=== PATIENT | male | born 1965 | race African-American/Black ===

== ENCOUNTER 2023-02-28 10:51 | Emergency (ER) | payer OTHER, SELFPAY ==
--- NOTE | ~2023-02-28 | XR_ITS ---
EXAMINATION: XR ribs LT 2V w CXR 2V DATE: 02/28/2023 12:06 INDICATION: Cough. Left rib fracture. TECHNIQUE: Frontal and lateral views of the chest and 2 views on 3 radiographs of the left ribs were obtained. COMPARISON: None. FINDINGS: CHEST TWO VIEWS: There is no pneumonia or pneumothorax. There is a small left pleural effusion. The h eart size is normal. There are surgical clips in the abdomen. There are suture anchors in left scapul a. LEFT RIBS: There is a healing comminuted fracture of left clavicle with callus formation. There are f ractures of left third through eighth ribs. Some of the fractures demonstrate early callus formation. IMPRESSION: 1. Fractures of left third-eighth ribs, at least some of which have evidence of healing. 2. Healing fracture of left clavicle. 3. Small left pleural effusion. Reviewed, dictated and finalized at location A.
--- NOTE | ~2023-02-28 | CT_ITS ---
EXAMINATION:CT diagnostic chest wo con DATE: 02/28/2023 12:49 INDICATION: Left anterior rib pain. TECHNIQUE: Computed tomography (CT) of the chest was performed without intravenous contrast. Automate d exposure control and iterative reconstruction technique were employed. The dose-length product (DLP ) was 212.63 mGy-cm. COMPARISON: Chest and left rib radiographs 02/28/2023 FINDINGS: There is mild emphysema. There is mild atelectasis bilaterally. There is a trace left pleur al effusion. The heart size is normal. No pericardial effusion. There are coronary artery calcificati ons. Right-sided gynecomastia is noted. 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 There is a healing fracture of left clavicle. There is a healing fracture of left scapula. There are suture anchors in l eft scapula. There are healing fractures of left second-eighth ribs. Many of the ribs are fractured i n more than one place. IMPRESSION: 1. Healing fractures of left clavicle, left scapula, and multiple left ribs. No acute fracture. 2. Mild emphysema. Reviewed, dictated and finalized at location A.
[2023-02-28 11:09] VITALS: BP 120/69; PULSE 80; RESP 16; TEMP 37; O2SAT 98
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
--- NOTE | 2023-02-28 13:21 | ECG_ITS ---
Measurements Intervals [place] Rate: 68 P: 49 OR: 170 QRS: 29 QRSD: 80 T: 29 QT: 380 QTc: 406 Interpretive Statements SINUS RHYTHM INCOMPLETE RIGHT BUNDLE BRANCH BLOCK NO PREVIOUS ECG AVAILABLE FOR COMPARISON Electronically Signed On 02-28-2023 14:00:46 CDT by Arianne Gay M.D.
[2023-02-28] MEDS: KETOROLAC (*BKC) 60 MG/2 ML VIAL IM (14:08)
== END 2023-02-28 14:22 | disposition home or self-care (01) ==
PROVIDERS: Emergency Provider Physician Assistant; PCP Internal Medicine
DX: R07.81 Pleurodynia (principal); S22.42XD Multiple fractures of ribs, left side, subsequent encounter for fracture with routine healing; S42.002D Fracture of unspecified part of left clavicle, subsequent encounter for fracture with routine healing; S42.102D Fracture of unspecified part of scapula, left shoulder, subsequent encounter for fracture with routine healing; J43.9 Emphysema, unspecified; V29.99XD Rider (driver) (passenger) of other motorcycle injured in unspecified traffic accident, subsequent encounter
CPT/HCPCS: 71046; 71100; 71250; 93005; 96372; 99284; J1885

== ENCOUNTER 2024-01-16 08:47 | Emergency (ER) | payer OTHER, SELFPAY ==
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
[2024-01-16 08:55] VITALS: BP 129/91; PULSE 64; RESP 18; TEMP 36.8; O2SAT 99
--- NOTE | 2024-01-16 09:52 | ED.GENADULT ---
HPI - General Adult General Chief complaint: Headache Stated complaint: headache Time Seen by Provider: 01/16/24 08:56 History of Present Illness HPI narrative: 58-year-old male present to the emergency department for evaluation of recurrent headache. Patient states he has had headache for the last few weeks. Patient initially thought it was due to an ear infection on the right. Patient does have a bleed to the ER but that is almost constantly in the right ear. Patient states he was treated for an ear infection and began to have improvement but symptoms worsened again yesterday after being upset Related Data Allergies Allergy/AdvReac Type Severity Reaction Status Date / Time egg Allergy Unknown Verified 01/16/24 09:01 Review of Systems Review of Systems: All systems reviewed & are unremarkable except as noted in HPI and below Exam Narrative: APPEARANCE: Well appearing, no pain, no distress, well-nourished. HEAD: normocephalic, atraumatic. EYES: PERRLA/EOMI, conjunctivae clear. NOSE: Normal no drainage EARS:TMS clear with good light reflex. THROAT: Pharynx clear, no exudate. NECK: Supple. No adenopathy, no masses. RESPIRATORY: Airway patent, respirations nonlabored. Clear to auscultation bilaterally, no rales, rhonchi, wheezing. CARDIOVASCULAR: Regular rate and rhythm without murmurs rubs or gallops. ABDOMINAL: Soft, nontender, nondistended, normal bowel sounds MUSCULOSKELETAL: Moves all extremities. Strength/ROM intact, No edema, No calf tenderness. NEURO: Alert. Cranial nerves II through XII intact. Good gait. Good coordination SKIN: Warm, dry. Normal Color Course Course Emergency Course: Patient does feel improved with treatment Vital Signs Vital signs: Vital Signs Temperature 98.2 F 01/16/24 08:55 Pulse Rate 64 01/16/24 08:55 Respiratory Rate 18 01/16/24 08:55 Blood Pressure 129/91 H 01/16/24 08:55 Pulse Oximetry 99 01/16/24 08:55 Oxygen Delivery Room Air 01/16/24 08:55 Temperature 98.2 F 01/16/24 08:55 Pulse Rate 69 01/16/24 12:01 Respiratory Rate 18 01/16/24 12:01 Blood Pressure 140/87 01/16/24 12:01 Pulse Oximetry 96 01/16/24 12:01 Oxygen Delivery Room Air 01/16/24 08:55 Medical Decision Making MDM Narrative Medical decision making narrative: 50-year-old male presents emergency department for evaluation of right-sided headache. Head CT was negative. No evidence of otitis externa or otitis media on right ear. Patient was treated with IV Toradol, IV Compazine IV Reglan IV fluids and patient states his headache is resolved. Patient was comfortable with plan for discharge and close follow-up. Differential Diagnosis Differential Diagnosis: Migraine, headache, intracranial abnormality, otitis media, otitis externa, mastoiditis Vital Signs Vital Signs: Vital Signs Temperature 98.2 F 01/16/24 08:55 Pulse Rate 64 01/16/24 08:55 Respiratory Rate 18 01/16/24 08:55 Blood Pressure 129/91 H 01/16/24 08:55 Pulse Oximetry 99 01/16/24 08:55 Oxygen Delivery Room Air 01/16/24 08:55 Temperature 98.2 F 01/16/24 08:55 Pulse Rate 69 01/16/24 12:01 Respiratory Rate 18 01/16/24 12:01 Blood Pressure 140/87 01/16/24 12:01 Pulse Oximetry 96 01/16/24 12:01 Oxygen Delivery Room Air 01/16/24 08:55 Imaging Data Radiologist's impression: Impressions Head CT 01/16/24 09:17 IMPRESSION: 1. Normal brain. Discharge Plan Discharge Clinical Impression: Headache Patient Disposition: Home, Self-Care Condition: Stable Instructions: Antibiotic Form, Acute Headache (ED) Additional Instructions: Tylenol and ibuprofen for headache. Have close follow-up with your primary care physician. If you have any worsening symptoms then please call or return to the emergency department. Prescriptions: No Action lidocaine 5 % adhesive patch,medicated 1 patch topical DAILY Qty: 15 0RF Rx Instructions:
[2024-01-16] MEDS: diphenhydrAMINE HCl INJ 50 MG/ML VIAL 25 MG IV PUSH (10:05)
[2024-01-16] MEDS: KETOROLAC 15 MG/ML VIAL (*BKC) IV PUSH (10:05)
[2024-01-16] MEDS: PROCHLORPERAZINE EDISYLATE 10 MG/2 ML VIAL IV PUSH (10:06)
[2024-01-16] MEDS: SODIUM CHLORIDE 0.9% IV 1,000 ML 999 ML IV CONT (10:06)
[2024-01-16 12:01] VITALS: BP 140/87; PULSE 69; RESP 18; O2SAT 96
== END 2024-01-16 12:04 | disposition home or self-care (01) ==
PROVIDERS: Emergency Provider Emergency Medicine; PCP Internal Medicine
DX: R51.9 Headache, unspecified (principal)
CPT/HCPCS: 70450; 96361; 96374; 96375; 99284; J0780; J1200; J1885; J7030

== ENCOUNTER 2024-11-02 19:40 | Emergency (ER) | payer OTHER, SELFPAY ==
--- NOTE | ~2024-11-02 | XR_ITS ---
XR chest 2V Ordering provider: Bouchra Mars History: 58 years Male with . SOB . Comparison: February 28, 2023 FINDINGS: MEDIASTINUM: The cardiac silhouette is not enlarged. LUNGS: No infiltrates, effusions or pneumothorax. OTHER: No free air under the diaphragm. Fracture of the left scapula is noted. Fracture of the left t hird, fourth, fifth and sixth ribs is noted. Degenerative changes of the spine. IMPRESSION: Multiple left rib fractures. Fracture of the left scapula. Otherwise, No acute cardiopulmonary pathology. Reviewed, dictated and finalized at location A.
--- NOTE | ~2024-11-02 | CT_ITS ---
Procedure: CT shoulder LT wo con Ordering provider: Eloy Knowles PA-C History: . follow up XR, L scapular fx . Comparison: None. Technique: Thin slice axial CT of the No IV contrast was given. Sagittal and coronal reformatted imag es were also obtained and reviewed. Radiation reduction technique utilized. The dose-length product w as 286.04 mGy-cm. Findings: BONES: Old healed fracture is seen in the left scapula. No definite acute scapular fracture is seen. Old healed fractures are seen in the left third, fourth, fifth and sixth ribs. Postoperative changes are also seen in the left scapula area. Old healed fracture of the left clavicle is also noted JOINT SPACES: Osteoarthritic changes of the glenohumeral joint. SOFT TISSUES: Normal IMPRESSION: No definite acute fracture. Old fracture in the left scapula. Old healed fracture of the left clavicle. Multiple healed old fractures in the left hemithorax ribs. Reviewed, dictated and finalized at location A.
--- NOTE | ~2024-11-02 | CT_ITS ---
CT diagnostic chest wo [facility] Ordering provider: Eloy Knowles PA-C History: 58 years Male with . fall, follow up chest xr . Comparison: None. Technique: CT chest without IV contrast. Radiation reduction technique utilized. The dose-length product was 446.64 mGy-cm. FINDINGS: VISUALIZED THORACIC INLET: Normal. MEDIASTINUM: Aorta/coronary arteries: Mild atheromatous disease. Heart/other: The heart is not enlarged. Lymph nodes: No mediastinal or hilar adenopathy. LUNGS: No pulmonary nodules or masses. No infiltrates or effusions. No pneumothorax. Dependent atelec tatic changes. VISUALIZED UPPER ABDOMEN: the visualized upper abdomen is normal. MUSCULOSKELETAL: Soft tissues: The superficial soft tissues are normal. Bones: Age appropriate degenerative changes of the spine. Multiple healed left upper thoracic fractur e ribs. Healed fracture in the left scapula. IMPRESSION: 1. No acute cardiopulmonary pathology. 2. Old fractures in the left hemithorax upper ribs. Old fracture of the left scapula. Reviewed, dictated and finalized at location A. IMPRESSION: 1. No acute cardiopulmonary pathology. 2. Old fractures in the left hemithorax upper ribs. Old fracture of the left s capula.
--- NOTE | ~2024-11-02 | XR_ITS ---
XR scapula LT Ordering provider: Bouchra Mars MD History: . pain, injury . Comparison: None. FINDINGS: BONES: Fracture of the left scapula is noted.. Fracture of the adjacent ribs is noted. Old healed fra cture of the left clavicle is possible. JOINT SPACES: The acromioclavicular joint is normal. The glenohumeral joint is normal. SOFT TISSUES: Normal. IMPRESSION: Fracture of the left scapula near to the glenoid cavity. CT is better for evaluation. Reviewed, dictated and finalized at location A. IMPRESSION: Fracture of the left scapula near to the glenoid cavity. CT is better for evalu ation.
--- OUTSIDE RECORDS SUMMARY | 2024-11-02 19:43 | XMS_ITS | Referral Summary ---
Author Organization [facility] Address [address] [place] [address] Care Team Providers Care Manager Ecommerce Name Role Phone Min Self MD Primary Care Provider [phone] Min Self MD Unavailable [phone] Chris Craft PT Unavailable Unavaila Tessie Carlson OIL SPECULATOR Unavailable Unavailab Galen Grady MD Unavailable Encounters Date Type Department Care Team Description 10/28/2024 Orders Only [facility] Primary Care at [address] [place] [phone] Min Self MD 10/22/2024 Telephone [facility] Radiology [address] [place] [address] Hyacinth Culver RN 10/20/2024 Telephone [facility] Primary Care at [address] [place] [phone] Min Self MD Medical Question/Miscellane ous 10/15/2024 6:33 AM CDT - 10/15/2024 11:59 PM CDT Hospital Encounter [facility] [address] [place] [id number] Alvaro Doty MD Left hip pain Discharge Disposition: Discharge to home or self care 10/13/2024 Orders Only [facility] Orthopaedic Surgery [address] [facility] ([place], [place] Advanced Medicine 6th [place] [address] [place] [address] Alvaro Doty MD 10/12/2024 Telephone [facility] Radiology, Interventional Radiology [address] [facility] [address] [place] [phone] Kamilla Guevara, RN Appointment 10/09/2024 Telephone [facility] Orthopaedic Surgery [facility] [facility] ([place] [place] 6th [place] [address] [place] [address] Alvaro Doty MD 10/09/2024 Telephone [facility] Radiology [address] [facility] [place] [address] yHacinth Culver RN 10/09/2024 8:15 AM CDT - 10/09/2024 11:59 PM CDT Hospital Encounter [facility] Rad[facility] [address] [place] [phone] Alvaro Doty MD Left hip pain Discharge Disposition: Discharge to home or self care 10/09/2024 8:40 AM CDT Office Visit [facility] Orthopaedic Surgery [address] [facility] ([place] [place] 6th [place] [address] [place] [address] Alvaro Doty MD Left hip pain (Primary Dx) 10/07/2024 Orders Only [facility] Orthopaedic Surgery [address] [facility] ([place] [place] [address]th [place] [address] [place] [address] Alvaro Doty MD Left hip pain (Primary Dx) 09/08/2024 7:47 AM STRAIGHTENING MACHINE FEEDER - 09/08/2024 11:59 PM STRAIGHTENING MACHINE FEEDER Hospital Encounter [facility] Orthopedics and Sports Medicine [address] [place] [address] [address] [place] [phone] Discharge Disposition: Discharge to home or self care 09/08/2024 2:00 PM STRAIGHTENING MACHINE FEEDER Office Visit [facility] Orthopedics and Sports Medicine [address] [place] [address] [address] [place] [phone] Alla Gomez PA Left hip pain (Primary Dx) 08/06/2024 Telephone [facility] Orthopedics and Sports Medicine [address] [facility] [address] [place] [address] Kevin Calvert MD from Last 3 Months Allergies Active Allergy Reactions Criticality Noted Date Comments Egg Nausea & Vomiting Low 01/07/2023 Medications methocarbamoL (ROBAXIN) 500 mg tablet Take 1 tablet (500 mg total) by mouth every 8 (eight) hours 60 tablet 3 Active Additional Information Patient not taking.Reported on 10/09/2024 aspirin 81 mg enteric coated tabletIndicati ons:Closed fracture of multiple ribs of left side with routine healing, subsequent encounter Take 1 tablet (81 mg total) by mouth daily Active albuterol 2.5 mg /3 mL (0.083 %) nebulizer solution Take 3 mL (2.5 mg total) by nebulization every 6 (six) hours as needed for wheezing 75 mL 1 3 Active bisacodyl EC (DULCOLAX EC) 5 mg EC tabletIndicati ons:constipati on Take 1 tablet (5 mg total) by mouth every other day 45 tablet 4 Active Additional Information Patient not taking.Reported on 09/08/2024 albuterol HFA (PROVENTIL HFA,VENTOLIN HFA,PROAIR HFA) 90 mcg/actuation inhaler Inhale 2 puffs every 4 (four) hours as needed for wheezing 2 each 1 4 Active rosuvastatin (CRESTOR) 40 mg tablet TAKE 1 TABLET BY MOUTH EVERY DAY 100 tablet 1 4 Active Additional Information Patient not taking.Reported on 10/09/2024 empagliflozin (Jardiance) 10 mg tablet Take 1 tablet (10 mg total) by mouth daily 90 tablet 3 4 Active metFORMIN XR (GLUCOPHAGE XR) 500 mg 24 hr tablet TAKE 3 TABLETS (1,500 MG TOTAL) BY MOUTH DAILY WITH BREAKFAST 270 tablet 1 5 Active meloxicam (MOBIC) 7.5 mg tablet Take 1 tablet (7.5 mg total) by mouth daily 5 Active Nurtec ODT tablet,disinte grating Take 1 tablet (75 mg total) by mouth every other day as needed (headache) 16 tablet 5 5 Active HYDROcodone-ac etaminophen (NORCO) 10-325 mg per tabletIndicati ons:Pain Take 1-2 tablets by mouth every 12 (twelve) hours as needed for pain 90 tablet 5 Active HYDROcodone-ac etaminophen (NORCO) 10-325 mg per tabletIndicati ons:Pain Take 1-2 tablets by mouth every 12 (twelve) hours as needed for pain 90 tablet 5 025 Discontin ued(Reord er) Active Problems Problem Noted Date Diagnosed Date Macrocytosis without anemia 06/19/2024 Overview (06/19/2024): B12, folate, tsh wnl 05/2024 Assessment & Plan (06/19/2024 8:13 AM STRAIGHTENING MACHINE FEEDER): B12, folate, TSH normal May 2024. History of stroke 02/17/2024 Assessment & Plan (05/27/2024 8:43 AM STRAIGHTENING MACHINE FEEDER): Prior left frontal lobe CVA. Repeat MRI. Assessment & Plan (02/17/2024 5:48 PM CDT): Will avoid Triptans with history of hypertension and previous stroke. Occipital headache 02/17/2024 Assessment & Plan (06/19/2024 8:14 AM STRAIGHTENING MACHINE FEEDER): Headaches well controlled with Nurtec ODT. Last required about a week ago. Recommended decreasing tobacco, alcohol, caffeine. Complete MRI as directed by Neurology and follow up with them for further management. Assessment & Plan (05/27/2024 8:45 AM STRAIGHTENING MACHINE FEEDER): Patient presents today for evaluation of occipital headaches that radiate to his temporal region and through his jaw. Symptoms have been waxing and waning. Symptom onset was approximately November of 2023. Patient had received resolution with his pain with Nurtec q.48h. Reports he is forgetting to take it every other day over the past 1-2 months. His initial symptoms started on the right side of his occipital region with extension there was right temporal and right jaw. Over the past month he has had 3 days of headache pain starting in the left occipital radiating to the left temporal and left jaw. These symptoms have been adequately treated with Nurtec. At this time advised following: Obtain brain MRI without contrast Continue Nurtec as needed for pain Discussed possible contributing factors including smoking, EtOH use, lack of sleep, and caffeine We will check vitamin B1, B12, and folate Advised headache diary Monitor for worsening signs or symptoms and report changes to clinic Follow up in 3-4 months Assessment & Plan (02/17/2024 5:50 PM CDT): Could be atypical migraines versus occipital neuralgia. Neurology referral for occipital neuralgia evaluation. For atypical migraines, will try Nurtec ODT and discussed potential side effects and call back if any develop. Should avoid Triptans given history of previous stroke and hypertension. Normal sed rate/CRP makes temporal arteritis unlikely. Encounter for screening colonoscopy 10/11/2023 Constipation 09/17/2023 Assessment & Plan (09/17/2023 10:33 AM STRAIGHTENING MACHINE FEEDER): Opiate induced constipation from his chronic hydrocodone usage. He has failed Metamucil Dulcolax Colace MiraLax. Both Movantik and Symproic sent to the pharmacy and he knows to take only 1, whichever is cheaper or covered by insurance. Will also check TSH and FT4 and call back for results. Rectal bleeding 09/17/2023 Assessment & Plan (09/17/2023 10:35 AM STRAIGHTENING MACHINE FEEDER): Most likely irritated hemorrhoids from worsening constipation. Should improve with treatment of constipation. Will order colonoscopy to ensure no other underlying source of bleeding and because he has had polyps in the past. Alcohol use 08/19/2023 Assessment & Plan (08/19/2023 9:11 AM STRAIGHTENING MACHINE FEEDER): Decrease use, cont mvi. Alcohol use disorder 07/13/2023 Hemopneumothorax 01/14/2023 Assessment & Plan (01/14/2023 12:18 PM CDT): Patient directed to follow-up with Trauma surgery for repeat chest x-ray and stay suture removal. Closed fracture of multiple ribs of left side Assessment & Plan (01/14/2023 12:19 PM CDT): Patient directed to follow-up with Trauma surgery for repeat chest x-ray and stay suture removal. Continue current usage of Berea but aware we will eventually need to start weaning down intake. Clavicle fracture 01/14/2023 Assessment & Plan (01/14/2023 12:16 PM CDT): Follow-up with orthopedics as they direct on February 22 and will excuse from work until that visit. Closed fracture of left scap glynn, unspecified part of scapula, initial encounter 01/06/2023 Assessment & Plan (01/14/2023 12:16 PM CDT): Follow-up with orthopedics as they direct on February 22 and will excuse from work until that visit. 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 Ganglion cyst 04/16/2022 Assessment & Plan (08/08/2022 12:30 PM STRAIGHTENING MACHINE FEEDER): Continue Berea 10/325 2 tablets every 12 hours as needed. Asked him to try to cut down on this if able. He needs to follow-up with his orthopedist for surgical intervention as they direct. Assessment & Plan (07/05/2022 11:59 AM STRAIGHTENING MACHINE FEEDER): Continue following with orthopedics S/p injection Will reach out to ortho to determine if patient has any restrictions for work Needs release forms filled for work. Will complete after speaking with ortho F/u prn Assessment & Plan (05/13/2022 8:34 PM CDT): Continue follow-up with orthopedics as directed. Pain control as needed and warned of sedating and constipating side effects. Left testicular pain 03/12/2022 Assessment & Plan (03/12/2022 4:52 PM CDT): Ultrasound and call back for results. Cipro for suspected epididymitis. COPD without exacerbation 11/04/2020 Overview (11/04/2020): Min obstruction on pft's 09/2017. Assessment & Plan (06/19/2024 8:13 AM STRAIGHTENING MACHINE FEEDER): Stop smoking immediately and use albuterol as needed. Assessment & Plan (08/19/2023 9:16 AM STRAIGHTENING MACHINE FEEDER): Stop smoking immediately. Albuterol as needed. Assessment & Plan (05/12/2023 11:43 PM CDT): Stop smoking immediately. Albuterol p.r.n. Assessment & Plan (11/18/2022 12:22 PM CDT): Patient with history of COPD and recent pneumonia and requires nebulizer for albuterol treatments. Prescription provided. Assessment & Plan (08/08/2022 12:30 PM STRAIGHTENING MACHINE FEEDER): Patient congratulated on smoking cessation efforts and should continue to work on this. Albuterol as needed. Assessment & Plan (01/26/2022 11:48 AM CDT): Stop smoking immediately. Continue Anoro daily. Albuterol as needed. Assessment & Plan (05/04/2021 9:04 AM CDT): Continue Anoro daily and use albuterol as needed. Assessment & Plan (11/04/2020 8:39 AM CDT): Must stop smoking. Use Anoro daily. Use albuterol as needed Lesion of lip 11/04/2020 Assessment & Plan (11/04/2020 8:39 AM CDT): ENT referral for further evaluation. Given family history and his personal history of smoking and alcohol use, he is at high risk of cancer. Left hip pain 11/04/2020 Assessment & Plan (03/12/2022 4:55 PM CDT): Findings on CT pelvis certainly concerning for possible metastasis. MRI for further evaluation. Will look for primary with CT abdomen, colonoscopy and also check SPEP/UPEP. Orthopedic and oncology referral. Assessment & Plan (11/04/2020 8:40 AM CDT): Unclear etiology. Will start with x-rays of his pelvis and hip and call back for results. Physical therapy evaluation. If no improvement orthopedic referral. Gastroenteritis 02/22/2020 Hyponatremia 02/22/2020 Tinea cruris 04/23/2019 Assessment & Plan (04/23/2019 9:14 AM CDT): Terbinafine for 1 month and warned of side effects and call back if any develop. Use ketoconazole twice daily until resolved. Chronic rhinitis 05/29/2018 Assessment & Plan (08/19/2018 8:33 AM STRAIGHTENING MACHINE FEEDER): Recommended use of Flonase once daily, nasal rinses, and OTC antihistamine with failed improvement with nasal rises/sprays. RTC prn Traumatic arthritis of shoulder region 8 Chronic left shoulder pain 04/14/2018 Assessment & Plan (04/14/2018 12:18 PM CDT): I did recommend completing an x-ray prior to MRI and certainly will go ahead and consult orthopedist in order for them to do a full evaluation of patient considering his history of trauma to left shoulder in order to indicated there is any additional need for imaging and/or management. He already takes Berea p.r.n. for pain continue this certainly as needed will follow-up with recommendations per orthopedist Healthcare maintenance 05/17/2017 Assessment & Plan (06/19/2024 8:13 AM STRAIGHTENING MACHINE FEEDER): Flu shot today.. Tetanus booster every 10 years. Shingrix completed. Colonoscopy due October 2026. PSA yearly. Will see him back in 6 months with lab sooner if needed. Assessment & Plan (05/12/2023 11:44 PM CDT): Flu shot each April. Tetanus booster every 10 years. COVID booster when available. Shingrix recommended. Colonoscopy due March 2026. PSA yearly. Will see him back in 6 months with lab sooner if needed. Assessment & Plan (01/26/2022 11:49 AM CDT): Flu shot each April. Tetanus booster every 10 years. COVID-19 vaccination completed. Shingrix recommended. Colonoscopy ordered. Lung cancer screening discussed and after hearing the pros and cons of low-dose CT chest, patient agreeable for screening. PSA pending and will call back for results. Will see him back in 6 months with lab sooner if needed. Assessment & Plan (11/04/2020 8:39 AM CDT): Flu shot each April. Tetanus booster every 10 years. He has completed COVID - 19 vaccine and Pneumovax. Shingrix recommended. Colonoscopy due March 2021. PSA yearly. Will see him back in 4 months with lab sooner if needed. Assessment & Plan (01/05/2020 4:02 PM CDT): He requires a TB test an MMR titer for completion of his state of [place] forms. Otherwise at the present time he appears to have no contraindication to living in a daycare facility. Assessment & Plan (07/14/2019 9:03 AM STRAIGHTENING MACHINE FEEDER): Flu shot each April which was declined today and he is aware the risks this poses to his health. Tetanus booster every 10 years. Shingrix recommended. Colonoscopy due March 2021. PSA yearly. Will see him back in 6 months with lab sooner if needed. Assessment & Plan (05/29/2018 7:33 PM STRAIGHTENING MACHINE FEEDER): Flu shot each April. Tetanus booster every 10 years. Shingrix recommended. PSA yearly. Colonoscopy due March 2021. Will see him back in 4 months with fasting lab sooner if needed. Assessment & Plan (05/17/2017 5:48 PM CDT): Flu shot each April. Tetanus booster updated as last visit. Colonoscopy new March 2021. PSA yearly. Will see him back in 6 months with fasting lab sooner if needed. Major depressive disorder 04/22/2017 Erectile dysfunction 04/22/2017 Benign prostatic hyperplasia with urinary obstru ction 05/07/2016 Assessment & Plan (12/31/2018 3:16 PM CDT): Start tamsulosin and call back if no improvement. May need increase to 0.8 daily. Decrease fluid intake and caffeine and alcohol. Consideration of Myrbetriq if no improvement. May also need urological referral. Assessment & Plan (05/29/2018 7:32 PM STRAIGHTENING MACHINE FEEDER): No symptomatic improvement on tamsulosin or finasteride. Decrease fluids in the evening. Decrease alcohol intake. Hold both tamsulosin and finasteride. Restart if symptoms worsen. Consider urological referral in the future. Assessment & Plan (11/20/2017 10:23 AM CDT): Restart finasteride. Check PSA before next visit. Continue Flomax. Urological referral if worsens. Assessment & Plan (05/17/2017 5:47 PM CDT): Continue Flomax for now. Follow up with Urology if worsens. Type 2 diabetes mellitus with hyperlipidemia 01/2016 Overview (10/25/2016): Diabetes mellitus type II Assessment & Plan (06/19/2024 8:12 AM STRAIGHTENING MACHINE FEEDER): Continue current medications, efforts at diet exercise, and check labs before next visit in 4 months. Assessment & Plan (02/17/2024 5:48 PM CDT): Continue current medications, efforts at diet exercise, and check labs before next visit in 4 months. Assessment & Plan (08/19/2023 9:17 AM STRAIGHTENING MACHINE FEEDER): Check fasting labs this week and call back for results. For now continue his metformin, Jardiance, irbesartan, rosuvastatin Assessment & Plan (05/12/2023 11:46 PM CDT): A1c, LDL, and blood pressure currently well controlled on current regimen. Check a yearly diabetic eye exam and blood sugars daily. Monofilament testing is intact. Assessment & Plan (11/18/2022 12:21 PM CDT): Continue current efforts at diet exercise, Jardiance, metformin check labs before next visit. Assessment & Plan (08/08/2022 12:29 PM STRAIGHTENING MACHINE FEEDER): Have labs done tomorrow and call back for results and for now continue all medications as is. Assessment & Plan (01/26/2022 11:47 AM CDT): A1c, LDL, and blood pressure currently well controlled on current regimen. Check a yearly diabetic eye exam and blood sugars daily. Monofilament testing is intact. Assessment & Plan (05/04/2021 9:03 AM CDT): A1c, LDL, and blood pressure currently well controlled on current regimen. Check a yearly diabetic eye exam and blood sugars daily. Monofilament testing is intact. Assessment & Plan (11/04/2020 8:38 AM CDT): A1c well controlled but LDL above goal. He needs restart his rosuvastatin. Check lipids and LFTs before next visit as well as an A1c. Assessment & Plan (01/05/2020 4:00 PM CDT): A1c, LDL, and blood pressure currently well controlled on current regimen. Check a yearly diabetic eye exam and blood sugars daily. Monofilament testing is intact. Assessment & Plan (07/14/2019 9:01 AM STRAIGHTENING MACHINE FEEDER): A1c, LDL, and blood pressure currently well controlled on current regimen. Check a yearly diabetic eye exam and blood sugars daily. Monofilament testing is intact. Assessment & Plan (04/23/2019 9:13 AM CDT): A1c, LDL, and blood pressure currently well controlled on current regimen. Check a yearly diabetic eye exam and blood sugars daily. Monofilament testing is intact. Assessment & Plan (01/25/2019 6:44 PM CDT): We had a lengthy discussion regarding importance of proper diet and he needs to eliminate all beer and sugar containing drinks. He should reduce pasta, potatoes, bread. He should increase exercise and lose weight. He should slowly increase his metformin to 2000 mg with dinner over the next few weeks. Side effects discussed will call back if any develop. Insulin recommended to get his A1c and fasting blood sugars under control which he currently declines and he is aware of the risks this poses to his health. Prescription for QTERN and co-payment savings card provided. Side effects discussed will call back if any develop. He is aware that we will unlikely reach goal with oral medications alone. Will see him back in 3 months with lab sooner if needed. Assessment & Plan (12/31/2018 3:15 PM CDT): Continues metformin and reduce carbohydrates and increase exercise and lose weight and check labs before next visit. Assessment & Plan (10/01/2018 10:42 PM CDT): Discussed importance of diet exercise and reducing carbohydrate intake including his beer. Start metformin and discussed side effects and call back if any develop. Check all labs before next visit. He needs to be compliant with his Crestor as LDL above goal and he is aware the risks this poses to his health. Assessment & Plan (08/12/2018 11:40 AM STRAIGHTENING MACHINE FEEDER): Last A1c was 7.2% with room to improve as goal is to get under 7%. Glycosuria was also noted during ER visit D/T poor control. Encourage Pt to continue with dietary modifications and increase exercise and discussed further indications to start on metformin upon next visit Dr. Self Assessment & Plan (05/29/2018 7:27 PM STRAIGHTENING MACHINE FEEDER): A1c above goal. Must reduce carbs further. Must increased exercise and lose weight. Add metformin next visit if no improvement. Assessment & Plan (11/20/2017 10:20 AM CDT): A1c, , and blood pressure currently well controlled on current regimen. Check a yearly diabetic eye exam and blood sugars daily. Take a daily aspirin. Monofilament testing is intact. Assessment & Plan (05/17/2017 5:47 PM CDT): A1c and improving nicely on change in diet exercise. LDL above goal needs to be more compliant with his statin therapy. Continue daily aspirin. Blood pressure below goal is PUJA-inhibitor. He needs a yearly diabetic eye exam to check blood sugars once daily. Tobacco dependence syndrome 12/05/2013 Overview (05/04/2021): Did not tolerate chantix Assessment & Plan (06/19/2024 8:12 AM STRAIGHTENING MACHINE FEEDER): Nicotine replacement therapy and smoking cessation counseling discussed at length. The long-term risks posed to his health with continued usage were discussed at length. Assessment & Plan (05/12/2023 11:45 PM CDT): Nicotine replacement therapy and smoking cessation counseling discussed at length. The long-term risks posed to his health with continued usage were discussed at length. Assessment & Plan (08/08/2022 12:29 PM STRAIGHTENING MACHINE FEEDER): Patient is encouraged to continue smoking cessation efforts. Assessment & Plan (05/04/2021 9:04 AM CDT): Nicotine replacement and Zyban recommended. Side effects discussed and call back if any develop. Assessment & Plan (11/04/2020 8:38 AM CDT): Nicotine replacement therapy and smoking cessation counseling discussed at length. The long-term risks posed to his health with continued usage were discussed at length. Assessment & Plan (01/05/2020 4:00 PM CDT): Nicotine replacement therapy and smoking cessation counseling discussed at length. The long-term risks posed to his health with continued usage were discussed at length. Assessment & Plan (07/14/2019 9:01 AM STRAIGHTENING MACHINE FEEDER): Nicotine replacement therapy and smoking cessation counseling discussed at length. The long-term risks posed to his health with continued usage were discussed at length. Assessment & Plan (04/23/2019 9:13 AM CDT): Nicotine replacement therapy and smoking cessation counseling discussed at length. The long-term risks posed to his health with continued usage were discussed at length. Assessment & Plan (10/01/2018 10:42 PM CDT): Nicotine replacement therapy and smoking cessation counseling discussed at length. The long-term risks posed to his health with continued usage were discussed at length. Assessment & Plan (08/19/2018 8:32 AM STRAIGHTENING MACHINE FEEDER): Improving. Down to 4-6 cigarettes a day with use of Nicorette lozenges. Continue with tobacco cessation methods considering success Assessment & Plan (08/12/2018 11:41 AM STRAIGHTENING MACHINE FEEDER): Encourage Pt to work toward cessation. He does still have neck red lozenges that he does have to use the future. Recheck does with any additional assistance we can provide work toward cessation Assessment & Plan (05/29/2018 7:31 PM STRAIGHTENING MACHINE FEEDER): Nicotine replacement therapy and smoking cessation counseling discussed at length. The long-term risks posed to his health with continued usage were discussed at length. Assessment & Plan (11/20/2017 10:21 AM CDT): Nicotine replacement therapy and smoking cessation counseling discussed at length. The long-term risks posed to his health with continued usage were discussed at length. Assessment & Plan (08/20/2017 8:38 AM STRAIGHTENING MACHINE FEEDER): Smoking cessation was again encouraged considering acute complaints of dyspnea. I did recommend patient to have a full pulmonary functions test in 2 weeks after the appropriately treating acute bronchitis and sinusitis to determine if there is presence of COPD as the last test he has had done was in 2011 which was surprisingly normal. He states he smokes a pack a day and I again encouraged him of importance of cessation and for him to reach out to us if we can assist in any way Assessment & Plan (05/17/2017 5:46 PM CDT): He is congratulated on smoking cessation efforts. Assessment & Plan (03/14/2017 8:30 AM CDT): Patient is doing well in regard to smoking cessation as he is currently on the patch and is down to 2-3 cigarettes daily really as he was previously on 2 packs daily. Patient was advised to continue with the current method of cessation as it is working well for him, certainly advised to follow up in our office for any assistance we can provide in regard to cessation therapy. Benign hypertension 12/05/2013 Overview (10/25/2016): BENIGN HYPERTENSION Assessment & Plan (06/19/2024 8:12 AM STRAIGHTENING MACHINE FEEDER): Blood pressure acceptable and microalbumin creatinine ratio normal therefore we will continue holding ARB for now. Assessment & Plan (02/17/2024 5:48 PM CDT): Decrease irbesartan to 75 mg daily. Check blood pressures at home occasionally call back if they elevate. Assessment & Plan (08/19/2023 9:16 AM STRAIGHTENING MACHINE FEEDER): Pressure well controlled on irbesartan Assessment & Plan (05/12/2023 11:43 PM CDT): Blood pressure well controlled on irbesartan Assessment & Plan (08/08/2022 12:30 PM STRAIGHTENING MACHINE FEEDER): Blood pressure well controlled on his irbesartan. Assessment & Plan (05/13/2022 8:34 PM CDT): Well controlled on the current regimen. Avoidance of salt, proper body weight, and routine exercise recommended. Assessment & Plan (01/26/2022 11:48 AM CDT): Well controlled on the current regimen. Avoidance of salt, proper body weight, and routine exercise recommended. Assessment & Plan (05/04/2021 9:04 AM CDT): Well controlled on the current regimen. Avoidance of salt, proper body weight, and routine exercise recommended. Assessment & Plan (11/04/2020 8:38 AM CDT): Well controlled on the current regimen. Avoidance of salt, proper body weight, and routine exercise recommended. Assessment & Plan (01/05/2020 4:01 PM CDT): Well controlled on the current regimen. Avoidance of salt, proper body weight, and routine exercise recommended. Assessment & Plan (07/14/2019 9:02 AM STRAIGHTENING MACHINE FEEDER): Well controlled on the current regimen. Avoidance of salt, proper body weight, and routine exercise recommended. Assessment & Plan (04/23/2019 9:13 AM CDT): Well controlled on the current regimen. Avoidance of salt, proper body weight, and routine exercise recommended. Assessment & Plan (01/25/2019 6:32 PM CDT): Well controlled on the current regimen. Avoidance of salt, proper body weight, and routine exercise recommended. Assessment & Plan (12/31/2018 3:16 PM CDT): Well controlled on the current regimen. Avoidance of salt, proper body weight, and routine exercise recommended. Assessment & Plan (10/01/2018 10:42 PM CDT): Well controlled on the current regimen. Avoidance of salt, proper body weight, and routine exercise recommended. Assessment & Plan (08/19/2018 8:34 AM STRAIGHTENING MACHINE FEEDER): Blood pressure improved in office today compared to last office visit continue with current antihypertensives, dash diet, working toward smoking cessation and follow-up in office in 6 weeks for labs and visit scheduled Assessment & Plan (08/12/2018 11:42 AM STRAIGHTENING MACHINE FEEDER): Blood pressure stable in office today. Continue current antihypertensives, monitoring blood pressure readings at home to notify us with any sx of elevated BP or readings at or above 140/90. Continue daily aspirin, heart healthy diet increase exercise F/U in office as scheduled with labs prior to visit Assessment & Plan (05/29/2018 7:31 PM STRAIGHTENING MACHINE FEEDER): Well controlled on the current regimen. Avoidance of salt, proper body weight, and routine exercise recommended. Assessment & Plan (11/20/2017 10:21 AM CDT): Change lisinopril to losartan due to chronic coughing. Assessment & Plan (08/20/2017 8:36 AM STRAIGHTENING MACHINE FEEDER): Stable. Continue to avoid decongestants well acutely ill. Pt was advised of continuing heart healthy DASH diet, increase exercise as tolerated, and continuing to monitor for any lower leg edema, headaches, changes in vision, or facial flushing. Continue ASA and anti-hypertensives as prescribed. Assessment & Plan (05/17/2017 5:46 PM CDT): Well controlled on the current regimen. Avoidance of salt, proper body weight, and routine exercise recommended. Assessment & Plan (03/14/2017 8:28 AM CDT): Stable. Pt was advised of continuing heart healthy DASH diet, increase exercise as tolerated, and continuing to monitor for any lower leg edema, headaches, changes in vision, or facial flushing. Continue ASA and anti-hypertensives as prescribed. 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 Self in April Hyperlipidemia 12/05/2013 Overview (04/23/2019): LDL baseline 180's Assessment & Plan (06/19/2024 8:12 AM STRAIGHTENING MACHINE FEEDER): Restart rosuvastatin 40 mg daily and take it at bedtime. Check lipids LFTs before next visit. Assessment & Plan (08/19/2023 9:17 AM STRAIGHTENING MACHINE FEEDER): Check fasting labs this week and call back for results. Continue his rosuvastatin diet exercise. Assessment & Plan (05/12/2023 11:45 PM CDT): Well controlled on current therapy and will check a lipid panel and LFTs in 6 months. Assessment & Plan (11/18/2022 12:21 PM CDT): Continues rosuvastatin check lipids and LFTs before next visit Assessment & Plan (08/08/2022 12:29 PM STRAIGHTENING MACHINE FEEDER): Check lipids and LFTs tomorrow and call back for results. Continue rosuvastatin for now. Assessment & Plan (01/26/2022 11:48 AM CDT): Well controlled on current therapy and will check a lipid panel and LFTs in 6 months. Assessment & Plan (05/04/2021 9:04 AM CDT): Well controlled on current therapy and will check a lipid panel and LFTs in 6 months. Assessment & Plan (11/04/2020 8:38 AM CDT): Restart rosuvastatin and check lipids LFTs before next visit. Assessment & Plan (01/05/2020 4:01 PM CDT): He needs restart his rosuvastatin work on diet exercise. Check lipids and LFTs before next visit. Assessment & Plan (07/14/2019 9:02 AM STRAIGHTENING MACHINE FEEDER): Well controlled on current therapy and will check a lipid panel and LFTs in 6 months. Assessment & Plan (04/23/2019 9:13 AM CDT): Much better controlled on regular usage of his rosuvastatin. Assessment & Plan (01/25/2019 6:32 PM CDT): Again not compliant with his statin therapy and the risks of this discussed at length. He must take his Crestor each and every day and will check lipids and LFTs before next visit. Assessment & Plan (10/01/2018 10:42 PM CDT): Must be more compliant with his Crestor and will check labs again before next visit. Assessment & Plan (05/29/2018 7:31 PM STRAIGHTENING MACHINE FEEDER): Should be taking Crestor on a regular basis. Check lipids before next visit. Assessment & Plan (11/20/2017 10:21 AM CDT): Must take Crestor each and every day. Call back if develops side effects. Check lipids and LFTs before next visit. Assessment & Plan (05/17/2017 5:47 PM CDT): Patient needs to be more compliant with his Crestor. Check lipids and LFTs before next visit. Assessment & Plan (03/14/2017 8:29 AM CDT): Continue with heart healthy diet, daily aspirin 81, and Crestor 40 mg q.day as well Will follow-up regarding results of FLP which was ordered office today and certainly will follow-up regarding results of testing any for additional management. Patient should follow up on this chronic condition 6 months Cerebral artery occlusion 12/05/2013 Overview (10/26/2016): CRBL ART OCL NOS W INFRC Osteoarthritis of both knees 12/05/2013 Overview (10/26/2016): OSTEOARTHROS NOS-UNSPEC Assessment & Plan (06/19/2024 8:13 AM STRAIGHTENING MACHINE FEEDER): Continue Berea as needed and follow up with Orthopedics if worsens. Assessment & Plan (08/19/2023 9:17 AM STRAIGHTENING MACHINE FEEDER): Continue Berea as needed and follow up with Orthopedics if worsens. Assessment & Plan (05/12/2023 11:45 PM CDT): Continue Berea as needed and follow-up with orthopedics if worsens. Assessment & Plan (01/26/2022 11:48 AM CDT): Increase Berea to 10/325 1 tablet every 12 hours as needed. Patient advised if pain worsens after this, to seek orthopedic evaluation. Assessment & Plan (11/04/2020 8:39 AM CDT): Continue Berea p.r.n. Assessment & Plan (07/14/2019 9:02 AM STRAIGHTENING MACHINE FEEDER): Berea p.r.n.. Follow-up with orthopedics if worsens. Assessment & Plan (04/23/2019 9:13 AM CDT): Continue hydrocodone p.r.n. Assessment & Plan (12/31/2018 3:16 PM CDT): Continue efforts at weaning down off of his chronic narcotic therapy. Assessment & Plan (08/12/2018 11:52 AM STRAIGHTENING MACHINE FEEDER): Refilled norco to take prn after having checked the [place] PMDP online. No desire to see orthopedist at this time d/t insurance issues with coverage for TKR Assessment & Plan (05/29/2018 7:31 PM STRAIGHTENING MACHINE FEEDER): Berea p.r.n. follow-up Orthopedics as they direct. Assessment & Plan (11/20/2017 10:22 AM CDT): Berea p.r.n. Assessment & Plan (08/20/2017 8:40 AM STRAIGHTENING MACHINE FEEDER): Still awaiting to become a candidate to have his knees replaced as he states t hat to be bone on bone , I recommended him to follow up with ortho as indicated. Additionally, I refilled his Be[place] to use on a p.r.n. basis I did check into the [place] state monitoring program in order to verify that he has not refilled anywhere else besides our office and verified with him to only fill at 1 pharmacy in order to maintain prescription refill and consistency of care he does understand side effects of medications and declined at this time. Follow-up in a month to maintain prescription refill Assessment & Plan (05/17/2017 5:47 PM CDT): Berea p.r.n. and follow up with Orthopedics as they a direct. Obstructive sleep apnea syndrome 08/04/2013 Overview (10/25/2016): LAINEY (obstructive sleep apnea) Assessment & Plan (06/19/2024 8:12 AM STRAIGHTENING MACHINE FEEDER): Patient is compliant with the CPAP machine and gets symptomatic relief. Assessment & Plan (08/19/2023 9:17 AM STRAIGHTENING MACHINE FEEDER): Patient is compliant with the CPAP machine and gets symptomatic relief. Assessment & Plan (05/12/2023 11:45 PM CDT): Patient is compliant with the CPAP machine and gets symptomatic relief. Assessment & Plan (01/26/2022 11:47 AM CDT): Patient is compliant with the CPAP machine and gets symptomatic relief. Assessment & Plan (11/04/2020 8:38 AM CDT): Patient is compliant with the CPAP machine and gets symptomatic relief. Assessment & Plan (07/14/2019 9:02 AM STRAIGHTENING MACHINE FEEDER): Patient is compliant with the CPAP machine and gets symptomatic relief. Assessment & Plan (05/29/2018 7:27 PM STRAIGHTENING MACHINE FEEDER): Patient is compliant with the CPAP machine and gets symptomatic relief. Assessment & Plan (11/20/2017 10:21 AM CDT): Continue CPAP therapy and follow up Dr. Flores as he directs. Assessment & Plan (08/20/2017 8:40 AM STRAIGHTENING MACHINE FEEDER): I advised patient he can take a week off of wearing his CPAP device if it seems to be obstructing his sinuses until we appropriately treat the pansinusitis certainly there is any questions he has pertaining this is before the next follow-up to give our office a call but in the interim I would recommend treating sinusitis in wearing the CPAP device as prescribed nocturnally after completion of antibiotics Assessment & Plan (06/28/2017 10:53 AM STRAIGHTENING MACHINE FEEDER): Patient would like to proceed with a 2nd attempt at titration study. Referral to be arranged. Once completed he would like to work through provider +for his equipment. Further direction pending sleep study. Assessment & Plan (05/17/2017 5:46 PM CDT): Still declines treatment and referral to Sleep Medicine for further evaluation. He is aware the risks this poses to his health. Hypoxemia Resolved Problems Problem Noted Date Diagnosed Date Resolved Date Influenza 07/12/2023 06/19/2024 Lung nodules 10/31/2022 06/19/2024 Lower respiratory infection 08/19/2018 08/19/2018 Assessment & Plan (08/19/2018 8:34 AM STRAIGHTENING MACHINE FEEDER): Recommended Z-Kavon to take as prescribed, nasal rinses, Mucinex with increase fluids to assist with cough production and current COPD management. RTC with worsening or little improvement sx over the course of the next 5-7 days Acute URI 08/12/2018 08/19/2018 Assessment & Plan (08/12/2018 11:50 AM STRAIGHTENING MACHINE FEEDER): Rapid influenza negative. Likely be a viral origin at this time. I supportive measures discussed with Pt including use of albuterol Q4-6hrs for next 2-3 days then prn thereafter, OTC Mucinex increase fluids, humidifier or vaporizer use to assist with chest congestion and cough. Indication to F/U in office were provided. Acute URI 04/14/2018 05/01/2018 Assessment & Plan (04/14/2018 12:17 PM CDT): Recommended amoxicillin to take as prescribed along with probiotics [id number]. Pt was advised to use OTC antihistamines, increase fluids and humidification, and mucinex OTC for alleviate of congestion and cough. Pulmonary emphysema 11/20/2017 11/05/19 21 Overview (11/20/2017): Min obstruction on pft's 09/2017. Assessment & Plan (01/05/2020 4:01 PM CDT): Continue Anoro and use albuterol p.r.n. stop smoking immediately. Assessment & Plan (07/14/2019 9:02 AM STRAIGHTENING MACHINE FEEDER): Well controlled on Anoro. Use albuterol p.r.n.. Stop smoking immediately. Assessment & Plan (04/23/2019 9:13 AM CDT): Stop smoking immediately. Continue Anoro. Use albuterol p.r.n. Assessment & Plan (01/25/2019 6:32 PM CDT): Continue Anoro daily and albuterol p.r.n. Assessment & Plan (10/01/2018 10:42 PM CDT): Well controlled on his Anoro. Assessment & Plan (08/19/2018 8:33 AM STRAIGHTENING MACHINE FEEDER): Mild exacerbation noted from lower resp. Infection. Cont. Anoro inhaler and albuterol use Q4-6hrs for indications provided. RTC with any persistent symptoms Assessment & Plan (08/12/2018 11:42 AM STRAIGHTENING MACHINE FEEDER): Continue with current dosing of an RO D/T C/o chronic cough and dyspnea as previously recommended even with acute chest congestion. Liberating use of albuterol p.r.n. During the acute infection was encouraged Assessment & Plan (05/29/2018 7:32 PM STRAIGHTENING MACHINE FEEDER): Start Anoro for chronic coughing and shortness of breath. Stop smoking immediately. Assessment & Plan (04/14/2018 12:19 PM CDT): Possible COPD exacerbation. Amoxicillin was prescribed Mucinex and water was advised to assist with production cough. Use of a humidifier vaporizer was also encouraged. Again smoking cessation was hardly hit office to which risk associated with long-term smoking was lengthily discussed. Assessment & Plan (11/20/2017 10:22 AM CDT): Stop smoking immediately. Continue albuterol p.r.n.. See if he stops coughing with discontinuation of lisinopril. If not consider adding Anoro. Acute non-recurrent pansinusitis 08/20/2017 11/20/2017 Assessment & Plan (08/20/2017 8:38 AM STRAIGHTENING MACHINE FEEDER): Z-Kavon did not seem to appropriately treat his sinusitis and postnasal drip which is likely contributing somewhat to his persistent cough along with his COPD. I recommended patient to take Ceftin 250 twice daily for 10 days along with use of [id number] Flonase, increase fluids and certainly the use of probiotics or [place] yogurt daily while on antibiotics. Follow-up in office prior to the 1 month follow-up if indicated Acute bronchitis 08/06/2017 11/20/2017 Assessment & Plan (08/20/2017 8:37 AM STRAIGHTENING MACHINE FEEDER): Prescribed corticosteroids in tapering fashion for with left of the acute bronchitis to assist with bronchial inflammation I also refilled his ProAir as he stated that he never actually took it after confirming medications. Recommended him to uses as needed certainly will see him here sooner than the month follow-up if persistent shortness of breath or wheezing is noted Fever 08/06/2017 11/20/2017 Multiple abrasions 05/10/2017 8 Assessment & Plan (05/17/2017 5:48 PM CDT): Just about completely healed and should return to [facility] if has any problems in the future. BMI 25.0-25.9,adult 03/14/2017 05/01/20 18 Assessment & Plan (08/20/2017 8:36 AM STRAIGHTENING MACHINE FEEDER): Recommended patient to continue to increase heart healthy diet with adequate fruits, vegetables, and plenty of water along with mild-moderate daily exercise as tolerated. Assessment & Plan (03/14/2017 8:08 AM CDT): Recommended patient to continue to increase heart healthy diet with adequate fruits, vegetables, and plenty of water along with mild-moderate daily exercise as tolerated. Measles, mumps, rubella (MMR ) vaccination status unknown 03/14/2017 04/22/2017 Assessment & Plan (03/14/2017 8:28 AM CDT): Checking MMR immunizations status, patient was advised that if titers are low we will need to receive the vaccination which is normally 2 separate once a month apart. Will follow-up regarding results of testing and need for a vaccinations Screening-pulmonary TB 03/14/201704/22 Assessment & Plan (03/14/2017 8:28 AM CDT): TB test ordered in office for patient to come in next Saturday or Saturday to have completed order to reading 487 to our post injection. Will follow-up once PPD is completed and certainly follow through with any management if indicated Epigastric pain 02/06/2017 05/17/2017 Assessment & Plan (02/06/2017 11:04 AM CDT): Hiatal hernia versus pud. Considering patient's stable appetite and palpable hiatal hernia office today, I advised patient we should move forward with an EGD to determine if there is presence of a hiatal hernia orifice epigastric discomfort is related to pud. We discussed the details of procedure in I advised him that often can be watched if stable otherwise we can see about surgical interventions. Will follow up here in 2-4 weeks after completion of surgery and determine next step in care With the mild regurg and epigastric discomfort, I recommended esomeprazole 40 milligrams q.day for at least the next 1-2 weeks until endoscopy is completed Sleep apnea syndrome 10/27/2014 018 Immunizations Immunization Administration Dates Next Due Influenza, Quadrivalent, Spl it, Preservative Free, Intramuscular 08/19/2023,06/21/2022,05/04/2021,2019,05/01/2018,05/17/2017,06/06/2016 Influenza, Split 05/28/2012 Influenza, Trivalent, Preser vative Free, Intramuscular 06/19/2024 Influenza, Unspecified 06/21/2022,2018(Deferred: Patient Refused),04/23/2019(Deferred: Patient Refused),04/21/2019(Deferred: Patient Refused) Moderna SARS-CoV-2 Monovalen t Vaccination (12+ YRS) 10/10/2020,09/01/2020 PPD TEST 03/18/2017 Pneumococcal Polysaccharide PPV23 05/29/2018 Td, adsorbed 04/22/2017 Tdap 01/06/2023(Deferred: Contraindication - Patient's tetanus status up to date.),04/06/2008 ZOSTER Recombinant 10/31/2023,08/19/2023 Social History Tobacco Use Types Packs/Day Years Used Date Smoking Tobacco: Every Day Cigarettes 0.5 35 Started: 05/06/1982; Last attempted to quit: 05/06/2017 Passive Smoke Exposure: Current Smokeless Tobacco: Never Tobacco Cessation:Ready to Q uit: Not Asked; Counseling Given: Not Answered Comments:Smoking History Packs/day: 1 Packs Alcohol Use Standard Drinks/Week Comments Yes 0 (1 standard drink = 0.6 oz pur e alcohol) AUDIT-C Answer Date Recorded Q1: How often do you have a drink containing alcohol? 4 or more times a week 06/19/2024 Q2: How many drinks containi ng alcohol do you have on a typical day when you are drinking? 3 or 4 Q3: How often do you have si x or more drinks on one occasion? Weekly 06/19/2024 PHQ-2 Answer Date Recorded PHQ-2 Total Score (If total score is 3 or more points, staff should administer the PHQ-9) 0 06/19/2024 Hunger Vital Sign Answer Date Recorded Within the past 12 months, y ou worried that your food would run out before you got the money to buy more. Never true 02/23/20 23 Within the past 12 months, t he food you bought just didn't last and you didn't have money to get more. Never true 02/22/2023 Personal Safety Answer Date Recorded Have you ever been in or are you currently in a harmful physical or emotional relationship or is someone making you feel afraid or unsafe? Denies 02/01/2024 Sex and Gender Information Value Date Recorded Sex Assigned at Not on file Legal Sex Male 12:31 AM STRAIGHTENING MACHINE FEEDER Gender Identity Not on file Sexual Orientation Not on file Last Filed Vital Signs Vital Sign Reading Time Taken Comments Blood Pressure 137/81 09/08/2024 2:01 PM STRAIGHTENING MACHINE FEEDER Pulse 74 09/08/2024 2:01 PM STRAIGHTENING MACHINE FEEDER Temperature 36.9 C (98.4 F) 06/19/2024 7:27 AM STRAIGHTENING MACHINE FEEDER Respiratory Rate 19 06/19/2024 7:27 AM STRAIGHTENING MACHINE FEEDER Oxygen Saturation 96% 06/19/2024 7:27 AM STRAIGHTENING MACHINE FEEDER Inhaled Oxygen Concentration - - Weight 74.4 kg (164 lb) 10/09/2024 9:11 AM CDT Height 162.6 cm (5' 4 ) 10/09/2024 9:11 AM CDT Body Mass Index 28.15 10/09/2024 9:11 AM CDT Plan of Treatment Not on file Procedures Procedure Name Priority Date/Time Associated Diagnosis Comments HEMOGLOBIN A1C Routine 10/28/2024 7:10 AM CDT ALBUMIN CREATININE RATIO, URINE Routine 10/28/2024 7:10 AM CDT COMPREHENSIVE METABOLIC PANEL Routine 10/28/2024 7:10 AM CDT LIPID PANEL Routine 10/28/2024 7:[address] PELVIS WO CONTRAST Schedule Routine, Read Routine (OP Routine) 10/15/2024 7:02 AM CDT Left hip pain XR PELVIS 1 OR 2 VIEWS Schedule Routine, Read Routine (OP Routine) 10/09/2024 9:08 AM CDT Left hip pain HEPATITIS C ANTIBODY Routine 06/08/2024 7:19 AM STRAIGHTENING MACHINE FEEDER Need for hepatitis C screening test PSA SCREEN Routine 06/08/2024 7:19 AM STRAIGHTENING MACHINE FEEDER Screening for prostate cancer COLONOSCOPY 11/19/2023 1:32 PM CDT DIABETIC EYE EXAM Routine 11/12/2020 DIABETES FOOT EXAM Routine 04/11/2016 from Last 3 Months or Most Recently Relevant to Health Maintenance Results * Albumin Creatinine Ratio, Urine (10/28/2024 7:10 AM CDT) Creatinine, ur 83 20 - 320 mg/dL [facility] Microalbumin, ur <0.2 See Note: mg/dL [facility] Comment: Reference Range: Reference Range Not established Microalbumin/creat ratio NOTE <30 mg/g creat [facility] Comment: NOTE: The urine albumin value is less than 0.2 mg/dL therefore we are unable to calculate excretion and/or creatinine ratio. The ADA defines abnormalities in albumin excretion as follows: Albuminuria Category Result (mg/g creatinine) Normal to Mildly increased <30 Moderately increased 30-299 Severely increased > OR = 300 The ADA recommends that at least two of three specimens collected within a 3-6 month period be abnormal before considering a patient to be within a diagnostic category. 10/28/2024 7:10 AM CDT 10/28/2024 7:14 AM CDT Narrative [facility] - 10/29/2024 3:46 AM CDT FASTING:YES FASTING: YES us Min Self MD LAB URINE ORDERABLES Final R esult [facility] [id number] [address] [id number] * (ABNORMAL) Hemoglobin A1c (10/28/2024 7:10 AM CDT) Pathologist [facility] Chronically Ill Hgb A1C 7.5(H) <5.7 % of total Hgb [facility] [employer] [facility]ers Comment: For someone without known diabetes, a hemoglobin A1c value of 6.5% or greater indicates that they may have diabetes and this should be confirmed with a follow-up test. For someone with known diabetes, a value <7% indicates that their diabetes is well controlled and a value greater than or equal to 7% indicates suboptimal control. A1c targets should be individualized based on duration of diabetes, age, comorbid conditions, and other considerations. Currently, no consensus exists regarding use of hemoglobin A1c for diagnosis of diabetes for children. 10/28/2024 7:10 AM CDT 10/28/2024 7:14 AM CDT Narrative [facility] - 10/29/2024 3:46 AM CDT FASTING:YES FASTING: YES us Min Self MD LAB BLOOD ORDERABLES Final R esult [facility] [address] [place] [address] * (ABNORMAL) Lipid panel (10/28/2024 7:10 AM CDT) [facility] Cholesterol 190 <200 mg/dL [facility] HDL 54 > OR = 40 mg/dL [facility] Triglycerides 70 <150 mg/dL [facility] LDL 120(H) mg/dL (calc) [facility] [employer] leisa Robinson Comment: Reference range: <100 Desirable range <100 mg/dL for primary prevention; <70 mg/dL for patients with CHD or diabetic patients with > or = 2 CHD risk factors. LDL-C is now calculated using the Cary calculation, which is a validated novel method providing better accuracy than the Friedewald equation in the estimation of LDL-C. Darrion EPSTEIN et al. LOS. 2013;310(19): 3293-9082 (http://education.Reksoft.FTAPI Software/faq/RCM442) Chol/HDL ratio 3.5 <5.0 (calc) [employer] leisa Robinson Non-HDL, (LDL+VLDL) 136(H) <130 mg/dL (calc) [employer] [facility] Comment: For patients with diabetes plus 1 major ASCVD risk factor, treating to a non-HDL-C goal of <100 mg/dL (LDL-C of <70 mg/dL) is considered a therapeutic option. 10/28/2024 7:10 AM CDT 10/28/2024 7:14 AM CDT Narrative [facility] - 10/29/2024 3:46 AM CDT FASTING:YES FASTING: YES us Min Self MD LAB BLOOD ORDERABLES Final R esult [facility] [address] [place] [address] * (ABNORMAL) Comprehensive metabolic panel (10/28/2024 7:10 AM CDT) Glucose 124(H) 65 - 99 mg/dL [facility] [employer] Bowers Comment: Fasting reference interval For someone without known diabetes, a glucose value between 100 and 125 mg/dL is consistent with prediabetes and should be confirmed with a follow-up test. BUN 13 7 - 25 mg/dL [employer] leisa Bowers Creatinine 0.74 0.70 - 1.30 mg/dL [facility] leisa Bowers eGFR 105 > OR = 60 mL/min/1.7 3m2 [employer] leisa Bowers BUN/creat ratio SEE NOTE: 6 - 22 (calc) [facility] [employer] Comment: Not Reported: BUN and Creatinine are within reference range. Sodium 133(L) 135 - 146 mmol/L [employer] leisa Bowers Potassium, pl 4.5 3.5 - 5.3 mmol/L [employer] le[facility] Bowers Chloride 99 98 - 110 mmol/L [employer] le[facility] Bowers CO2 29 20 - 32 mmol/L [employer] le[facility] Bowers Calcium 9.5 8.6 - 10.3 mg/dL [facility] le[facility] Bowers Protein, sr 6.9 6.1 - 8.1 g/dL [facility] Bowers Albumin 4.2 3.6 - 5.1 g/dL [facility] Bowers GLOBULIN 2.7 1.9 - 3.7 g/dL (calc) [facility] [employer] Alb/glob ratio 1.6 1.0 - 2.5 (calc) [facility] Bilirubin, total 0.8 0.2 - 1.2 mg/dL [facility] Alk phos 46 35 - 144 U/L [facility] AST 15 10 - 35 U/L [facility] ALT (SGPT) 14 9 - 46 U/L [facility]ers 10/28/2024 7:10 AM CDT 10/28/2024 7:14 AM CDT Narrative [facility] - 10/29/2024 3:46 AM CDT FASTING:YES FASTING: YES us Min Self MD LAB BLOOD ORDERABLES Final R esult [facility] [address] [place] [address] * CT pelvis without contrast (10/15/2024 7:02 AM CDT) Anatomical Region Laterality Modality Body N/A Computed Tomogra phy 10/15/2024 8:47 AM CDT Impressions 10/15/2024 8:47 AM CDT Multilocular subchondral cyst in the medial left acetabulum. Small intracystic gas locules may represent vacuum joint phenomenon or recent instrumentation. Electronically signed by: Vaughn Castelan M.D. Narrative 10/15/2024 8:[address] PELVIS WO CONTRAST HISTORY: Left periacetabular cyst. TECHNIQUE: Contiguous transaxial images were obtained through the pelvis without contrast. FINDINGS: Comparison is made with radiographs dated 10/09/2024. There is no fracture. There is mild bilateral hip osteoarthritis. There is a multi-lobulated subchondral cyst of the medial left acetabulum measuring approximately 3.2 x 2.0 x 2.6 cm extending into the root of the superior ramus. Several small gas locules are present within the cyst. There is no soft tissue mass. There is partially visualized lower lumbar spine degenerative disc disease. The sacroiliac joints and pubic symphysis are normal. Visualized pelvic musculature is normal and symmetric. There is diffuse atherosclerotic vascular calcification. There is no intrapelvic mass or fluid collection. Procedure Note Vaughn Castelan MD - 10/15/2024 CT PELVIS WO CONTRAST HISTORY: Left periacetabular cyst. TECHNIQUE: Contiguous transaxial images were obtained through the pelvis without contrast. FINDINGS: Comparison is made with radiographs dated 10/09/2024. There is no fracture. There is mild bilateral hip osteoarthritis. There is a multi-lobulated subchondral cyst of the medial left acetabulum measuring approximately 3.2 x 2.0 x 2.6 cm extending into the root of the superior ramus. Several small gas locules are present within the cyst. There is no soft tissue mass. There is partially visualized lower lumbar spine degenerative disc disease. The sacroiliac joints and pubic symphysis are normal. Visualized pelvic musculature is normal and symmetric. There is diffuse atherosclerotic vascular calcification. There is no intrapelvic mass or fluid collection. IMPRESSION: Multilocular subchondral cyst in the medial left acetabulum. Small intracystic gas locules may represent vacuum joint phenomenon or recent instrumentation. Electronically signed by: Vaughn Castelan M.D. Alvaro Doty MD IMG CT PROCEDURES Final Re sult * XR Pelvis 1 or 2 Views (10/09/2024 9:08 AM CDT) Anatomical Region Laterality Modality Body, Pelvis N/A Computed Radiogr aphy 10/09/2024 9:40 AM CDT Impressions 10/09/2024 1:07 PM CDT 1. Unchanged lucent lesion in the left pubic root. 2. Mild bilateral hip osteoarthritis. Dictated by: Lorenzo Elizondo M.D. The radiology attending physician has personally reviewed this study, and had reviewed and/or edited this written report and agrees with it. Electronically signed by: Chris Aguirre D.O. Narrative 10/09/2024 1:07 PM CDT EXAMINATION: XR PELVIS 1 OR 2 VIEWS HISTORY: Left Pubic Ramus Mass COMPARISON: CT abdomen and pelvis 01/06/2023 FINDINGS: No acute fracture or dislocation. Unchanged lucency at the pubic root corresponding to known lesion, better visualized on prior cross-sectional imaging. No additional lytic or sclerotic lesions. Mild bilateral hip osteoarthritis. Procedure Note Chris Aguirre DO - 10/09/2024 EXAMINATION: XR PELVIS 1 OR 2 VIEWS HISTORY: Left Pubic Ramus Mass COMPARISON: CT abdomen and pelvis 01/06/2023 FINDINGS: No acute fracture or dislocation. Unchanged lucency at the pubic root corresponding to known lesion, better visualized on prior cross-sectional imaging. No additional lytic or sclerotic lesions. Mild bilateral hip osteoarthritis. IMPRESSION: 1. Unchanged lucent lesion in the left pubic root. 2. Mild bilateral hip osteoarthritis. Dictated by: Lorenzo Elizondo M.D. The radiology attending physician has personally reviewed this study, and had reviewed and/or edited this written report and agrees with it. Electronically signed by: Chris Aguirre D.O. Alvaro Doty MD IMG XR PROCEDURES Final Re sult * PSA screen (06/08/2024 7:19 AM STRAIGHTENING MACHINE FEEDER) PSA 0.23 < OR = 4.00 ng/mL [facility] Comment: The total PSA value from this assay system is standardized against the WHO standard. The test result will be approximately 20% lower when compared to the equimolar-standardized total PSA (Jack [place]). Comparison of serial PSA results should be interpreted with this fact in mind. This test was performed using the Siemens chemiluminescent method. Values obtained from different assay methods cannot be used interchangeably. PSA levels, regardless of value, should not be interpreted as absolute evidence of the presence or absence of disease. Blood 06/08/2024 7:19 AM STRAIGHTENING MACHINE FEEDER 06/08/2024 7:22 AM STRAIGHTENING MACHINE FEEDER Narrative [facility] - 06/10/2024 1:13 AM STRAIGHTENING MACHINE FEEDER FASTING:YES FASTING: YES Min Self MD LAB BLOOD ORDERABLES Final R esult [facility] [address] [place] [address] * Hepatitis C antibody Blood (06/08/2024 7:19 AM STRAIGHTENING MACHINE FEEDER) Hep C Ab NON-REACTI VE NON-REACT JAS [facility] Comment: HCV antibody was non-reactive. There is no laboratory evidence of HCV infection. In most cases, no further action is required. However, if recent HCV exposure is suspected, a test for HCV RNA (test code 79335) is suggested. For additional information please refer to http://education.[employer]/faq/WSE83p6 (This link is being provided for informational/ educational purposes only.) Blood 06/08/2024 7:19 AM STRAIGHTENING MACHINE FEEDER 06/08/2024 7:22 AM STRAIGHTENING MACHINE FEEDER Narrative [facility] - 06/10/2024 1:13 AM STRAIGHTENING MACHINE FEEDER FASTING:YES FASTING: YES us Min Self MD LAB MICROBIOLOGY - GENERAL O RDERABLES Final Result [facility] [address] [place] [address] * Colonoscopy (11/19/2023 1:32 PM CDT) Anatomical Region Laterality Modality Other Narrative Procedure Note Carlo Walsh MD - 11/19/2023 1:32 PM CDT [facility] Patient Name: Tate Gotti Procedure Date: 11/19/2023 1:32 PM Date of : 1965 Admit Type: Outpatient Age: 58 Gender: Male Attending MD: Carlo Walsh M.D. Room: [facility] ENDOSCOPY ROOM 2 Note Status: Finalized Patient Profile: Refer to note in patient chart for documentation of history and physical. Procedure: Colonoscopy Indications: Last colonoscopy: March 2016, Hematochezia Referring MD: Min Self M.D. Providers: Carlo Walsh M.D. Impression: - Preparation of the colon was poor. - Four 3 to 6 mm polyps in the rectum and in the sigmoid colon, removed with a cold snare. Resectedand retrieved. - Diverticulosis in the sigmoid colon and in thececum. - Internal hemorrhoids. Recommendation: - Repeat colonoscopy in 3 years because the bowel preparation was suboptimal. - Return to endoscopist in 2 weeks. Medicines: Propofol per Anesthesia Complications: No immediate complications. Estimated Blood Loss: Estimated blood loss was minimal. Procedure: Pre-Anesthesia Assessment: - Prior to the procedure, a History and Physicalwas performed, and patient medications and allergieswere reviewed. The patient's tolerance of previous anesthesia was also reviewed. The risks andbenefits of the procedure and the sedation options and risks were discussed with the patient. All questions were answered, and informed consent was obtained. Prior Anticoagulants: The patient has taken noanticoagulant or antiplatelet agents. ASA Grade Assessment: II -A patient with mild systemic disease. After reviewing the risks and benefits, the patient was deemed in satisfactory condition to undergo the procedure. - Prior to the procedure, a History and Physicalwas performed, and patient medications and allergieswere reviewed. The patient's tolerance of previous anesthesia was also reviewed. The risks andbenefits of the procedure and the sedation options and risks were discussed with the patient. All questions were answered, and informed consent was obtained. Prior Anticoagulants: The patient has taken noanticoagulant or antiplatelet agents. ASA Grade Assessment: II -A patient with mild systemic disease. After reviewing the risks and benefits, the patient was deemed in satisfactory condition to undergo the procedure. The benefits, risks and alternatives of theprocedure and sedation were discussed and informed consentwas obtained. All questions were answered. Please referto the signed informed consent document in the medical record. The bowel preparation used was Miralax via split dose instruction. The bowel preparation usedwas bisacodyl tablets via split dose instruction. The scope was passed under direct vision. The Pediatric Colonoscope PCF-H190L [id number] was introducedthrough the anus and advanced to the the cecum, identifiedby appendiceal orifice and ileocecal valve. Theileocecal valve, appendiceal orifice, and rectum were photographed. The colonoscopy was performed without difficulty. The patient tolerated the procedurewell. The quality of the bowel preparation was poor.Scope withdrawal time was 20 minutes. Findings: Four semi-pedunculated polyps were found in the rectum and sigmoid colon. The polyps were 3 to 6 mm in size. These polyps were removedwith a cold snare. Resection and retrieval were complete. Verification of patient identification for the specimen was done by the nurse usingthe patient's name and date. Estimated blood loss was minimal. A few small-mouthed diverticula were found in the sigmoid colon and cecum. Internal hemorrhoids were found during retroflexion. The hemorrhoids were Grade II (internal hemorrhoids that prolapse but reduce spontaneously). Carlo Walsh M.D. 11/19/2023 3:04:09 PM Number of Addenda: 0 Note Initiated On: 11/19/2023 1:32 PM Procedure Code(s): --- Professional --- 40538, Colonoscopy, flexible; with removal of tumor(s), polyp(s), or other lesion(s) by snare technique --- Technical --- 21395, Colonoscopy, flexible; with removal of tumor(s), polyp(s), or other lesion(s) by snare technique Diagnosis Code(s): --- Professional --- K64.1, Second degree hemorrhoids K92.1, Melena (includes Hematochezia) --- Technical --- K64.1, Second degree hemorrhoids K92.1, Melena (includes Hematochezia) CPT copyright 2020 [employer]. All rights reserved. The codes documented in this report are preliminary and upon telecommunication lines repairer reviewmay be revised to meet current compliance requirements. Recognized by the [place] [employer] for promoting quality in endoscopy Carlo Walsh MD ENDOSCOPY PROCED URES Final Result * Diabetic Eye Exam (11/12/2020) Historical Provider HEALTH MAINTENANCE Final Result * DIABETES FOOT EXAM (04/11/2016) Diabetic Foot Exam Unknown Historical Provider HEALTH MAINTENANCE Final Result from Last 3 Months or Most Recently Relevant to Health Maintenance Insurance [employer] Advance Directives For more information, please contact: [phone] * Full Code (Latest Code Status on File) Date Activated Date Inactivated Comments 11/19/2023 12:43 PM 11/19/2023 7:45 PM * Full Code Date Activated Date Inactivated Comments 11/19/2023 12:43 PM 11/19/2023 12:43 PM * Full Code Date Activated Date Inactivated Comments 07/12/2023 10:14 PM 07/14/2023 4:29 PM * Full Code Date Activated Date Inactivated Comments 07/12/2023 10:14 PM 07/12/2023 10:14 PM * Full Code Date Activated Date Inactivated Comments 01/06/2023 6:01 PM 01/10/2023 8:55 PM Care Teams Manager Ecommerce Relationship Specialty Start Date End Date Min Self MD PCP - General Internal Medicine 06/16/22 Min Self MD 06/16/22 Chris Craft, PT Physical Therapist Physical Therapy 12/06/17 Tessie Gomez, [facility] Physical Therapist Physical Therapy 12/11/17 Galen Santo MD Consulting Physician Medical Oncology 03/13/22
--- OUTSIDE RECORDS SUMMARY | 2024-11-02 19:43 | XMS_ITS | Encounter Summary ---
Author Organization [facility] Address [address] [place] [address] Care Team Providers Care Radio Frequency Engineer Name Role Phone Min Self MD Primary Care Provider [phone] Min Self MD Unavailable [phone] Chris Craft PT Unavailable Unavaila Tessie Carlson TELEVISION PRODUCTION TECHNICIAN Unavailable Unavailab Galen Grady MD Unavailable [phone] Reason for Visit * Reason Onset Date Comments Medical Question/Miscellaneous 10/20/2024 Encounter Details Date Type Department Care Team ([facility] st Contact Info) Description 10/20/2024 Telephone [facility] Primary Care at [facility] [address], [place] [address] Min Self MD [address] [facility] [address], [place] [address] Medical Question/Miscellaneous Social History Tobacco Use Types Packs/Day Years Used Date Smoking Tobacco: Every Day Cigarettes 0.5 35 Started: 05/06/1982; Last attempted to quit: 05/06/2017 Passive Smoke Exposure: Current Smokeless Tobacco: Never Comments:Smoking History Pac ks/day: 1 Packs Alcohol Use Standard Drinks/Week Comments [...] on file Legal 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 Faxed an Authorization for Release of Information to [phone] for request of lab results for lab services on 10/28/24. * Telephone Encounter - GabrielaMarvin joynerna - 10/28/2024 8:15 AM CDT Test Result Request Type of test: labs Date of test: 10/28/24 Where was the test performed at?[facility] Did provider dictate result yet? No Additional Questions/Comments: Patient said the labs were done today at [facility] and the reason is forexcessive bowel movement and losing weight. Please follow up with the patient when labs have been reviewed. Does message need to be routed? Yes-Action Needed * Telephone Encounter - Kenrick Chopra - 10/20/2024 2:52 PM CDT Faxed to [facility] location in [place], [place] * Telephone Encounter - Sofya Dubose - 10/20/2024 11:05 AM CDT Medical Question/Miscellaneous Caller???s Concern: Patient is requesting to have the 06.19.2024 lab order switched to [facility]. Patient stated that he is currently taking Jardiance and Metformin and has been having frequent bowel movements. Patient would like to complete labs to find out if the symptom could be due to the medication. Does message need to be routed? Yes-Action Needed documented in this encounter Plan of Treatment Not on file documented as of this encounter Visit Diagnoses Not on filedocumented in this encounter Care Teams Radio Frequency Engineer Relationship Specialty Start Date End Date Min Self MD PCP - General Internal Medicine 06/16/22 Min Self MD 06/16/22 Chris Craft, PT Physical Therapist Physical Therapy 12/06/17 Tessie Gomez, TELEVISION PRODUCTION TECHNICIAN Physical Therapist Physical Therapy 12/11/17 Galen Santo MD Consulting Physician Medical Oncology 03/13/22 documented as of this encounter
--- OUTSIDE RECORDS SUMMARY | 2024-11-02 19:43 | XMS_ITS | Clinical Summary ---
Author Organization [facility] Address [address] [place] [address] Care Team Providers Care Tying Machine Operator Name Role Phone Unavailable Primary Care Provider Unavailabl e Social History Tobacco Use Types Packs/Day Years Used Date Smoking Tobacco: Never Assessed Sex and Gender Information Value Date Recorded Sex Assigned at Not on file Legal Sex Male 8:02 PM CDT Gender Identity Not on file Sexual Orientation Not on file Plan of Treatment Health Maintenance Due Date Last Done Comments Colorectal Cancer Screening Colonoscopy (10 Years) 1965 Annual Physical 1968 Hepatitis C 11/11/1983 Hepatitis B Vaccines (1 of 3 - 19+ 3-dose series) 1984 Zoster Vaccines (1 of 2) 11/11/2015 COVID-19 Vaccine (1 - 2023-2 5 season) 2024 DTaP, Tdap and Td Vaccines ( 3 - Td or Tdap) 04/22/2027 04/22/2017, 04/06/2008 Pneumococcal Vaccine: Pediatrics (0 to 5 Years) and At-Risk Patients (6 to 49 Years) Aged Out 05/29/2018 No longer eligible b ased on patient's age to complete this topic Meningococcal B Vaccine Aged Out No l onger eligible based on patient's age to complete this topic Meningococcal Vaccine Aged Out No precious alan eligible based on patient's age to complete this topic RSV Immunizations Under 20 Months Aged Out No longer eligible b ased on patient's age to complete this topic
--- OUTSIDE RECORDS SUMMARY | 2024-11-02 19:43 | XMS_ITS | Clinical Summary ---
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 <100 Desirable range <100 mg/dL for primary prevention; <70 mg/dL for patients with CHD or diabetic patients with > or = 2 CHD risk factors. LDL-C is now calculated using the Darrion-Baez calculation, which is a validated novel method providing better accuracy than the Friedewald equation in the estimation of LDL-C. Darrion SS et al. LOS. 2013;310(19): 0234-2858 (http://education.Compound Time/faq/WMR435) Chol/HDL ratio 3.5 <5.0 (calc) [facility] Non-HDL, (LDL+VLDL) 136(H) <130 mg/dL (calc) [facility] Comment: For patients with diabetes plus 1 major ASCVD risk factor, treating to a non-HDL-C goal of <100 mg/dL (LDL-C of <70 mg/dL) is considered a therapeutic option. 10/28/2024 7:10 AM CDT 10/28/2024 7:14 AM CDT Narrative [facility] - 10/29/2024 3:46 AM CDT FASTING:YES FASTING: YES us Min Self MD LAB BLOOD ORDERABLES Final R esult [facility] [address] [place] [address] * (ABNORMAL) Comprehensive metabolic panel (10/28/2024 7:10 AM CDT) Glucose 124(H) 65 - 99 mg/dL [facility] Comment: Fasting reference interval For someone without known diabetes, a glucose value between 100 and 125 mg/dL is consistent with prediabetes and should be confirmed with a follow-up test. BUN 13 7 - 25 mg/dL [facility] Creatinine 0.74 0.70 - 1.30 mg/dL [facility] eGFR 105 > OR = 60 mL/min/1.7 3m2 [facility] BUN/creat ratio SEE NOTE: 6 - 22 (calc) [facility] Comment: Not Reported: BUN and Creatinine are within reference range. Sodium 133(L) 135 - 146 mmol/L [facility] Potassium, pl 4.5 3.5 - 5.3 mmol/L [facility] Chloride 99 98 - 110 mmol/L [facility] CO2 29 20 - 32 mmol/L [facility] Calcium 9.5 8.6 - 10.3 mg/dL [facility] Protein, sr 6.9 6.1 - 8.1 g/dL [facility] Albumin 4.2 3.6 - 5.1 g/dL [facility] GLOBULIN 2.7 1.9 - 3.7 g/dL (calc) [facility] Alb/glob ratio 1.6 1.0 - 2.5 (calc) [facility] Bilirubin, total 0.8 0.2 - 1.2 mg/dL [facility]ida Luna[facility]isha [facility]ers Alk phos 46 35 - 144 U/L [facility] Luna[facility] AST 15 10 - 35 U/L Candida LunaAisha Bowers ALT (SGPT) 14 9 - 46 U/L [facility] 10/28/2024 7:10 AM CDT 10/28/2024 7:14 AM CDT Narrative [facility] - 10/29/2024 3:46 AM CDT FASTING:YES FASTING: YES us Min Self MD LAB BLOOD ORDERABLES Final R esult [facility] [address] [place] [address] * CT pelvis without contrast (10/15/2024 7:02 [...] Mild bilateral hip osteoarthritis. Procedure Note Chris Aguirre, DO - 10/09/2024 EXAMINATION: XR PELVIS 1 [...] sult * PSA screen (06/08/2024 7:19 AM INDUSTRIAL CAFETERIA MANAGER) PSA 0.23 < OR = 4.00 ng/mL [facility] Comment: The total PSA value from this assay system is standardized against the WHO standard. The test result will be approximately 20% lower when compared to the equimolar-standardized total PSA (Jack Cornelius). Comparison of serial PSA results should be interpreted with this fact in mind. This test was performed using the Siemens chemiluminescent method. Values obtained from different assay methods cannot be used interchangeably. PSA levels, regardless of value, should not be interpreted as absolute evidence of the presence or absence of disease. Blood 06/08/2024 7:19 AM INDUSTRIAL CAFETERIA MANAGER 06/08/2024 7:22 AM INDUSTRIAL CAFETERIA MANAGER Narrative [facility] - 06/10/2024 1:13 AM INDUSTRIAL CAFETERIA MANAGER FASTING:YES FASTING: YES us Min Self MD LAB BLOOD ORDERABLES Final R esult Performing Organization Address [facility] Co de Phone Number [facility] [address] [address] [address] * Hepatitis C antibody Blood (06/08/2024 7:19 AM INDUSTRIAL CAFETERIA MANAGER) Hep C Ab NON-REACTI VE NON-REACT [facility] Comment: HCV antibody was non-reactive. There is no laboratory evidence of HCV infection. In most cases, no further action is required. However, if recent HCV exposure is suspected, a test for HCV RNA (test code 32518) is suggested. For additional information please refer to http://Ogorod.VQiao.com/faq/XRI82p8 (This link is being provided for informational/ educational purposes only.) Blood 06/08/2024 7:19 AM INDUSTRIAL CAFETERIA MANAGER 06/08/2024 7:22 AM INDUSTRIAL CAFETERIA MANAGER Narrative [facility] - 06/10/2024 1:13 AM INDUSTRIAL CAFETERIA MANAGER FASTING:YES FASTING: YES us Min Self MD LAB MICROBIOLOGY - GENERAL O RDERABLES Final Result Performing Organization Address [facility] Co de Phone Number [facility] [address] [place] [address] * Colonoscopy (11/19/2023 1:32 PM CDT) Anatomical Region Laterality Modality Other Narrative Procedure Note Carlo Walsh MD - 11/19/2023 1:32 PM CDT [facility] Patient Name: Tate Gotti Procedure Date: 11/19/2023 1:32 PM Date of : 1965 Admit Type: Outpatient Age: 58 Gender: Male Attending MD: Carlo Walsh M.D. [facility] 2 Note Status: Finalized Patient [...] under direct vision. The Pediatric Colonoscope PCF-H190L [id number] was introducedthrough the anus and advanced to [...] 1:32 PM Procedure Code(s): --- Professional --- 43541, Colonoscopy, flexible; with removal of tumor(s), polyp(s), or other lesion(s) by snare technique --- Technical --- 95987, Colonoscopy, flexible; with removal of tumor(s), polyp(s), or other lesion(s) by snare technique Diagnosis Code(s): --- Professional --- K64.1, Second degree hemorrhoids K92.1, Melena (includes Hematochezia) --- Technical --- K64.1, Second degree hemorrhoids K92.1, Melena (includes Hematochezia) CPT copyright 2020 [employer]. All rights reserved. The codes documented in this report are preliminary and upon health information coder reviewmay be revised to meet current compliance requirements. Recognized by the [place] [employer] for promoting quality in endoscopy Carlo Walsh MD ENDOSCOPY PROCED URES Final Result * Diabetic Eye Exam (11/12/2020) Historical Provider HEALTH MAINTENANCE Final Result * DIABETES FOOT EXAM (04/11/2016) Diabetic Foot Exam Unknown Historical Provider HEALTH MAINTENANCE Final Result from Last 3 Months or Most Recently Relevant to Health Maintenance Insurance [facility] PL[facility] PL[facility] Advance Directives For more information, please contact: [phone] * Full Code (Latest Code Status on [...] 6:01 PM 01/10/2023 8:55 PM Care Teams Canal Lock Tender Chief Operator Relationship Specialty Start Date End Date Min Self MD PCP - General Internal Medicine 06/16/22 Min Self MD 06/16/22 Chris Craft, PT Physical Therapist Physical Therapy 12/06/17 Tessie Gomez, FREIGHT ENGINEER Physical Therapist Physical Therapy 12/11/17 Galen Santo MD Consulting Physician Medical Oncology 03/13/22
[2024-11-02 20:17] VITALS: BP 134/64; PULSE 77; RESP 14; TEMP 36.5; O2SAT 97
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
--- OUTSIDE RECORDS SUMMARY | 2024-11-02 21:10 | XMS_ITS | Encounter Summary ---
Author Organization [facility] Healthcare Address [address] [place] [address] Care Team Providers Care Proof Inspector Name Role Phone Min Self MD Primary Care Provider [phone] Min Self MD Unavailable [phone] Chris Craft PT Unavailable Unavaila Tessie Carlson LABORER AMMUNITION ASSEMBLY Unavailable Unavailab Galen Grady MD Unavailable [phone] Reason for Visit * Reason Onset Date Comments Medical Question/Miscellaneous 10/20/2024 Encounter Details Date Type Department Care Team ([facility] st Contact Info) Description 10/20/2024 Telephone [facility] Primary Care at [facility] [address] [address] Min Self MD [address] [facility] [facility], [place] [address] Medical Question/Miscellaneous Social History Tobacco [...] on file 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 Faxed an Authorization for Release of Information to [phone] for request of lab results for lab services on 10/28/24. * Telephone Encounter - GabrielaMarvin joynerna - 10/28/2024 8:15 AM CDT Test Result Request Type of test: labs Date of test: 10/28/24 Where was the test performed at?[facility] Did provider dictate result yet? No Additional Questions/Comments: Patient said the labs were done today at [facility] and the reason is forexcessive bowel movement and losing weight. Please follow up with the patient when labs have been reviewed. Does message need to be routed? Yes-Action Needed * Telephone Encounter - Kenrick Chopra - 10/20/2024 2:52 PM CDT Faxed to [facility] location in [place], [place] * Telephone Encounter - Sofya Dubose [...] on filedocumented in this encounter Care Teams Proof Inspector Relationship Specialty Start Date End Date Min Self MD PCP - General Internal Medicine 06/16/22 Min Self MD 06/16/22 Chris Craft, PT Physical Therapist Physical Therapy 12/06/17 Tessie Gomez, LABORER AMMUNITION ASSEMBLY Physical Therapist Physical Therapy 12/11/17 Galen Santo MD Consulting Physician Medical Oncology 03/13/22 documented as of this encounter
--- OUTSIDE RECORDS SUMMARY | 2024-11-02 21:10 | XMS_ITS | Referral Summary ---
Author Organization [facility] Address [address] [place] [address] Care Team Providers Care Coin Teller Name Role Phone Min Self MD Primary Care Provider [phone] Min Self MD Unavailable Chris Craft PT Unavailable Unavaila Tessie Carlson ANIMAL TECH Unavailable Unavailab Galen Grady MD Unavailable Encounters Date Type Department Care Team Description 10/28/2024 Orders Only [facility] Primary Care at [address] [place] [phone] Min Self MD 10/22/2024 Telephone [facility]iology [address] [place] [address] Hyacinth Culver RN 10/20/2024 Telephone [facility] Primary Care at [address] [place] [phone] Min Self MD Medical Question/Miscellane ous 10/15/2024 6:33 AM CDT - 10/15/2024 11:59 PM CDT Hospital Encounter [facility] [address] [place] [address] Alvaro Doty MD Left hip pain Discharge Disposition: Discharge to home or self care 10/13/2024 Orders Only [facility] Orthopaedic Surgery [address] [facility] 6th [place] [address] [place] [address] Alvaro Doty MD 10/12/2024 Telephone [facility] Radiology, Interventional Radiology [address] [facility] [address] [place] [phone] Kamilla Guevara, RN Appointment 10/09/2024 Telephone [facility] Orthopaedic Surgery [facility] 6th [place] [address] [place] [address] Alvaro Doty MD 10/09/2024 Telephone [facility]iology 1 [facility] [place] [address] Hyacinth Culver RN 10/09/2024 8:15 AM CDT - 10/09/2024 11:59 PM CDT Hospital Encounter [facility] [address] [place] [address] Alvaro Doty MD Left hip pain Discharge Disposition: Discharge to home or self care 10/09/2024 8:40 AM CDT Office Visit [facility] Orthopaedic Surgery [address] [facility] 6th [place] [address] [place] [address] Alvaro Doty MD Left hip pain (Primary Dx) 10/07/2024 Orders Only [facility] Orthopaedic Surgery [address] [facility] 6th [place] [address] [place] [address] Alvaro Doty MD Left hip pain (Primary Dx) 09/08/2024 7:47 AM T[employer]ICAL [employer] CONTROL PARTY MANAGER - 09/08/2024 11:59 PM TACTICAL AIR CONTROL PARTY MANAGER Hospital Encounter [facility] Orthopedics and Sports Medicine [address] [place] [address] [address] [place] [address] Discharge Disposition: Discharge to home or self care 09/08/2024 2:00 PM T[employer]ICAL [employer] MANAGER Office Visit [facility] Orthopedics and Sports Medicine [address] [place] [address] [address] [place] [phone] Alla Gomez PA Left hip pain (Primary Dx) 08/06/2024 Telephone [facility] Orthopedics and Sports Medicine [address] [facility] [address] [place] [address] Kevin Calvert MD from Last [...] 05/2024 Assessment & Plan (06/19/2024 8:13 AM TACTICAL AIR CONTROL PARTY MANAGER): B12, folate, TSH normal May 2024. History of stroke 02/17/2024 Assessment & Plan (05/27/2024 8:43 AM TACTICAL AIR CONTROL PARTY MANAGER): Prior left frontal lobe CVA. Repeat MRI. Assessment & Plan (02/17/2024 5:48 PM CDT): Will avoid Triptans with history of hypertension and previous stroke. Occipital headache 02/17/2024 Assessment & Plan (06/19/2024 8:14 AM TACTICAL [employer] CONTROL PARTY MANAGER): Headaches well controlled with Nurtec ODT. Last required about a week ago. Recommended decreasing tobacco, alcohol, caffeine. Complete MRI as directed by Neurology and follow up with them for further management. Assessment & Plan (05/27/2024 8:45 AM TACTICAL AIR CONTROL PARTY MANAGER): Patient presents today for evaluation of [...] 09/17/2023 Assessment & Plan (09/17/2023 10:33 AM TACTICAL AIR CONTROL PARTY MANAGER): Opiate induced constipation from his chronic hydrocodone usage. He has failed Metamucil Dulcolax Colace MiraLax. Both Movantik and Symproic sent to the pharmacy and he knows to take only 1, whichever is cheaper or covered by insurance. Will also check TSH and FT4 and call back for results. Rectal bleeding 09/17/2023 Assessment & Plan (09/17/2023 10:35 AM TACTICAL AIR CONTROL PARTY MANAGER): Most likely irritated hemorrhoids from worsening constipation. Should improve with treatment of constipation. Will order colonoscopy to ensure no other underlying source of bleeding and because he has had polyps in the past. Alcohol use 08/19/2023 Assessment & Plan (08/19/2023 9:11 AM TACTICAL AIR CONTROL PARTY MANAGER): Decrease use, cont mvi. Alcohol use [...] stay suture removal. Continue current usage of [place] but aware we will eventually need to [...] 04/16/2022 Assessment & Plan (08/08/2022 12:30 PM TACTICAL AIR CONTROL PARTY MANAGER): Continue [place] 10/325 2 tablets every 12 hours as needed. Asked him to try to cut down on this if able. He needs to follow-up with his orthopedist for surgical intervention as they direct. Assessment & Plan (07/05/2022 11:59 AM TACTICAL AIR CONTROL PARTY MANAGER): Continue following with orthopedics S/p injection [...] 09/2017. Assessment & Plan (06/19/2024 8:13 AM TACTICAL AIR CONTROL PARTY MANAGER): Stop smoking immediately and use albuterol as needed. Assessment & Plan (08/19/2023 9:16 AM TACTICAL AIR CONTROL PARTY MANAGER): Stop smoking immediately. Albuterol as needed. Assessment & Plan (05/12/2023 11:43 PM CDT): Stop smoking immediately. Albuterol p.r.n. Assessment & Plan (11/18/2022 12:22 PM CDT): Patient with history of COPD and recent pneumonia and requires nebulizer for albuterol treatments. Prescription provided. Assessment & Plan (08/08/2022 12:30 PM TACTICAL AIR CONTROL PARTY MANAGER): Patient congratulated on smoking cessation efforts [...] 05/29/2018 Assessment & Plan (08/19/2018 8:33 AM TACTICAL AIR CONTROL PARTY MANAGER): Recommended use of Flonase once daily, [...] for imaging and/or management. He already takes [place] p.r.n. for pain continue this certainly as needed will follow-up with recommendations per orthopedist Healthcare maintenance 05/17/2017 Assessment & Plan (06/19/2024 8:13 AM TACTICAL AIR CONTROL PARTY MANAGER): Flu shot today.. Tetanus booster every [...] facility. Assessment & Plan (07/14/2019 9:03 AM TACTICAL AIR CONTROL PARTY MANAGER): Flu shot each April which was declined today and he is aware the risks this poses to his health. Tetanus booster every 10 years. Shingrix recommended. Colonoscopy due March 2021. PSA yearly. Will see him back in 6 months with lab sooner if needed. Assessment & Plan (05/29/2018 7:33 PM TACTICAL AIR CONTROL PARTY MANAGER): Flu shot each April. Tetanus booster [...] referral. Assessment & Plan (05/29/2018 7:32 PM TACTICAL AIR CONTROL PARTY MANAGER): No symptomatic improvement on tamsulosin or [...] II Assessment & Plan (06/19/2024 8:12 AM TACTICAL AIR CONTROL PARTY MANAGER): Continue current medications, efforts at diet exercise, and check labs before next visit in 4 months. Assessment & Plan (02/17/2024 5:48 PM CDT): Continue current medications, efforts at diet exercise, and check labs before next visit in 4 months. Assessment & Plan (08/19/2023 9:17 AM TACTICAL AIR CONTROL PARTY MANAGER): Check fasting labs this week and [...] visit. Assessment & Plan (08/08/2022 12:29 PM TACTICAL AIR CONTROL PARTY MANAGER): Have labs done tomorrow and call [...] intact. Assessment & Plan (07/14/2019 9:01 AM TACTICAL AIR CONTROL PARTY MANAGER): A1c, LDL, and blood pressure currently [...] health. Assessment & Plan (08/12/2018 11:40 AM TACTICAL AIR CONTROL PARTY MANAGER): Last A1c was 7.2% with room to improve as goal is to get under 7%. Glycosuria was also noted during ER visit D/T poor control. Encourage Pt to continue with dietary modifications and increase exercise and discussed further indications to start on metformin upon next visit Dr. Self Assessment & Plan (05/29/2018 7:27 PM TACTICAL AIR CONTROL PARTY MANAGER): A1c above goal. Must reduce carbs [...] chantix Assessment & Plan (06/19/2024 8:12 AM TACTICAL AIR CONTROL PARTY MANAGER): Nicotine replacement therapy and smoking cessation counseling discussed at length. The long-term risks posed to his health with continued usage were discussed at length. Assessment & Plan (05/12/2023 11:45 PM CDT): Nicotine replacement therapy and smoking cessation counseling discussed at length. The long-term risks posed to his health with continued usage were discussed at length. Assessment & Plan (08/08/2022 12:29 PM TACTICAL AIR CONTROL PARTY MANAGER): Patient is encouraged to continue smoking [...] length. Assessment & Plan (07/14/2019 9:01 AM TACTICAL AIR CONTROL PARTY MANAGER): Nicotine replacement therapy and smoking cessation [...] length. Assessment & Plan (08/19/2018 8:32 AM TACTICAL AIR CONTROL PARTY MANAGER): Improving. Down to 4-6 cigarettes a day with use of Nicorette lozenges. Continue with tobacco cessation methods considering success Assessment & Plan (08/12/2018 11:41 AM TACTICAL AIR CONTROL PARTY MANAGER): Encourage Pt to work toward cessation. He does still have neck red lozenges that he does have to use the future. Recheck does with any additional assistance we can provide work toward cessation Assessment & Plan (05/29/2018 7:31 PM TACTICAL AIR CONTROL PARTY MANAGER): Nicotine replacement therapy and smoking cessation counseling discussed at length. The long-term risks posed to his health with continued usage were discussed at length. Assessment & Plan (11/20/2017 10:21 AM CDT): Nicotine replacement therapy and smoking cessation counseling discussed at length. The long-term risks posed to his health with continued usage were discussed at length. Assessment & Plan (08/20/2017 8:38 AM TACTICAL AIR CONTROL PARTY MANAGER): Smoking cessation was again encouraged considering [...] HYPERTENSION Assessment & Plan (06/19/2024 8:12 AM TACTICAL AIR CONTROL PARTY MANAGER): Blood pressure acceptable and microalbumin creatinine ratio normal therefore we will continue holding ARB for now. Assessment & Plan (02/17/2024 5:48 PM CDT): Decrease irbesartan to 75 mg daily. Check blood pressures at home occasionally call back if they elevate. Assessment & Plan (08/19/2023 9:16 AM TACTICAL AIR CONTROL PARTY MANAGER): Pressure well controlled on irbesartan Assessment & Plan (05/12/2023 11:43 PM CDT): Blood pressure well controlled on irbesartan Assessment & Plan (08/08/2022 12:30 PM TACTICAL AIR CONTROL PARTY MANAGER): Blood pressure well controlled on his [...] recommended. Assessment & Plan (07/14/2019 9:02 AM TACTICAL AIR CONTROL PARTY MANAGER): Well controlled on the current regimen. [...] recommended. Assessment & Plan (08/19/2018 8:34 AM TACTICAL AIR CONTROL PARTY MANAGER): Blood pressure improved in office today compared to last office visit continue with current antihypertensives, dash diet, working toward smoking cessation and follow-up in office in 6 weeks for labs and visit scheduled Assessment & Plan (08/12/2018 11:42 AM TACTICAL AIR CONTROL PARTY MANAGER): Blood pressure stable in office today. Continue current antihypertensives, monitoring blood pressure readings at home to notify us with any sx of elevated BP or readings at or above 140/90. Continue daily aspirin, heart healthy diet increase exercise F/U in office as scheduled with labs prior to visit Assessment & Plan (05/29/2018 7:31 PM TACTICAL AIR CONTROL PARTY MANAGER): Well controlled on the current regimen. Avoidance of salt, proper body weight, and routine exercise recommended. Assessment & Plan (11/20/2017 10:21 AM CDT): Change lisinopril to losartan due to chronic coughing. Assessment & Plan (08/20/2017 8:36 AM TACTICAL AIR CONTROL PARTY MANAGER): Stable. Continue to avoid decongestants well [...] 180's Assessment & Plan (06/19/2024 8:12 AM TACTICAL AIR CONTROL PARTY MANAGER): Restart rosuvastatin 40 mg daily and take it at bedtime. Check lipids LFTs before next visit. Assessment & Plan (08/19/2023 9:17 AM TACTICAL AIR CONTROL PARTY MANAGER): Check fasting labs this week and call back for results. Continue his rosuvastatin diet exercise. Assessment & Plan (05/12/2023 11:45 PM CDT): Well controlled on current therapy and will check a lipid panel and LFTs in 6 months. Assessment & Plan (11/18/2022 12:21 PM CDT): Continues rosuvastatin check lipids and LFTs before next visit Assessment & Plan (08/08/2022 12:29 PM TACTICAL AIR CONTROL PARTY MANAGER): Check lipids and LFTs tomorrow and [...] visit. Assessment & Plan (07/14/2019 9:02 AM TACTICAL AIR CONTROL PARTY MANAGER): Well controlled on current therapy and [...] visit. Assessment & Plan (05/29/2018 7:31 PM TACTICAL AIR CONTROL PARTY MANAGER): Should be taking Crestor on a [...] NOS-UNSPEC Assessment & Plan (06/19/2024 8:13 AM TACTICAL AIR CONTROL PARTY MANAGER): Continue [place] as needed and follow up with Orthopedics if worsens. Assessment & Plan (08/19/2023 9:17 AM TACTICAL AIR CONTROL PARTY MANAGER): Continue [place] as needed and follow up with Orthopedics if worsens. Assessment & Plan (05/12/2023 11:45 PM CDT): Continue [place] as needed and follow-up with orthopedics if worsens. Assessment & Plan (01/26/2022 11:48 AM CDT): Increase [place] to 10/325 1 tablet every 12 hours as needed. Patient advised if pain worsens after this, to seek orthopedic evaluation. Assessment & Plan (11/04/2020 8:39 AM CDT): Continue [place] p.r.n. Assessment & Plan (07/14/2019 9:02 AM TACTICAL AIR CONTROL PARTY MANAGER): [place] p.r.n.. Follow-up with orthopedics if worsens. Assessment & Plan (04/23/2019 9:13 AM CDT): Continue hydrocodone p.r.n. Assessment & Plan (12/31/2018 3:16 PM CDT): Continue efforts at weaning down off of his chronic narcotic therapy. Assessment & Plan (08/12/2018 11:52 AM TACTICAL AIR CONTROL PARTY MANAGER): Refilled norco to take prn after having checked the [place] PMDP online. No desire to see orthopedist at this time d/t insurance issues with coverage for TKR Assessment & Plan (05/29/2018 7:31 PM TACTICAL AIR CONTROL PARTY MANAGER): [place] p.r.n. follow-up Orthopedics as they direct. Assessment & Plan (11/20/2017 10:22 AM CDT): [place] p.r.n. Assessment & Plan (08/20/2017 8:40 AM TACTICAL AIR CONTROL PARTY MANAGER): Still awaiting to become a candidate to have his knees replaced as he states t hat to be bone on bone , I recommended him to follow up with ortho as indicated. Additionally, I refilled his [place] to use on a p.r.n. basis I did check into the [place] state monitoring program in order to verify [...] Assessment & Plan (05/17/2017 5:47 PM CDT): [place] p.r.n. and follow up with Orthopedics as they a direct. Obstructive sleep apnea syndrome 08/04/2013 Overview (10/25/2016): LAINEY (obstructive sleep apnea) Assessment & Plan (06/19/2024 8:12 AM TACTICAL AIR CONTROL PARTY MANAGER): Patient is compliant with the CPAP machine and gets symptomatic relief. Assessment & Plan (08/19/2023 9:17 AM TACTICAL AIR CONTROL PARTY MANAGER): Patient is compliant with the CPAP [...] relief. Assessment & Plan (07/14/2019 9:02 AM TACTICAL AIR CONTROL PARTY MANAGER): Patient is compliant with the CPAP machine and gets symptomatic relief. Assessment & Plan (05/29/2018 7:27 PM TACTICAL AIR CONTROL PARTY MANAGER): Patient is compliant with the CPAP machine and gets symptomatic relief. Assessment & Plan (11/20/2017 10:21 AM CDT): Continue CPAP therapy and follow up Dr. Flores as he directs. Assessment & Plan (08/20/2017 8:40 AM TACTICAL AIR CONTROL PARTY MANAGER): I advised patient he can take [...] antibiotics Assessment & Plan (06/28/2017 10:53 AM TACTICAL AIR CONTROL PARTY MANAGER): Patient would like to proceed with [...] 08/19/2018 Assessment & Plan (08/19/2018 8:34 AM TACTICAL AIR CONTROL PARTY MANAGER): Recommended Z-Kavon to take as prescribed, nasal rinses, Mucinex with increase fluids to assist with cough production and current COPD management. RTC with worsening or little improvement sx over the course of the next 5-7 days Acute URI 08/12/2018 08/19/2018 Assessment & Plan (08/12/2018 11:50 AM TACTICAL AIR CONTROL PARTY MANAGER): Rapid influenza negative. Likely be a [...] to take as prescribed along with probiotics [id number]. Pt was advised to use OTC antihistamines, increase fluids and humidification, and mucinex OTC for alleviate of congestion and cough. Pulmonary emphysema 11/20/2017 11/05/19 21 Overview (11/20/2017): Min obstruction on pft's 09/2017. Assessment & Plan (01/05/2020 4:01 PM CDT): Continue Anoro and use albuterol p.r.n. stop smoking immediately. Assessment & Plan (07/14/2019 9:02 AM TACTICAL AIR CONTROL PARTY MANAGER): Well controlled on Anoro. Use albuterol p.r.n.. Stop smoking immediately. Assessment & Plan (04/23/2019 9:13 AM CDT): Stop smoking immediately. Continue Anoro. Use albuterol p.r.n. Assessment & Plan (01/25/2019 6:32 PM CDT): Continue Anoro daily and albuterol p.r.n. Assessment & Plan (10/01/2018 10:42 PM CDT): Well controlled on his Anoro. Assessment & Plan (08/19/2018 8:33 AM TACTICAL AIR CONTROL PARTY MANAGER): Mild exacerbation noted from lower resp. Infection. Cont. Anoro inhaler and albuterol use Q4-6hrs for indications provided. RTC with any persistent symptoms Assessment & Plan (08/12/2018 11:42 AM TACTICAL AIR CONTROL PARTY MANAGER): Continue with current dosing of an RO D/T C/o chronic cough and dyspnea as previously recommended even with acute chest congestion. Liberating use of albuterol p.r.n. During the acute infection was encouraged Assessment & Plan (05/29/2018 7:32 PM TACTICAL AIR CONTROL PARTY MANAGER): Start Anoro for chronic coughing and [...] 11/20/2017 Assessment & Plan (08/20/2017 8:38 AM TACTICAL AIR CONTROL PARTY MANAGER): Z-Kavon did not seem to appropriately treat his sinusitis and postnasal drip which is likely contributing somewhat to his persistent cough along with his COPD. I recommended patient to take Ceftin 250 twice daily for 10 days along with use of [id number] Flonase, increase fluids and certainly the use of probiotics or Mosotho yogurt daily while on antibiotics. Follow-up in office prior to the 1 month follow-up if indicated Acute bronchitis 08/06/2017 11/20/2017 Assessment & Plan (08/20/2017 8:37 AM TACTICAL AIR CONTROL PARTY MANAGER): Prescribed corticosteroids in tapering fashion for [...] 18 Assessment & Plan (08/20/2017 8:36 AM TACTICAL AIR CONTROL PARTY MANAGER): Recommended patient to continue to increase [...] on file Legal Sex Male 12:31 AM TACTICAL AIR CONTROL PARTY MANAGER Gender Identity Not on file Sexual Orientation Not on file Last Filed Vital Signs Vital Sign Reading Time Taken Comments Blood Pressure 137/81 09/08/2024 2:01 PM TACTICAL [employer] PARTY MANAGER Pulse 74 09/08/2024 2:01 PM TACTICAL AIR CONTROL PARTY MANAGER Temperature 36.9 C (98.4 F) 06/19/2024 7:27 AM TACTICAL AIR CONTROL PARTY MANAGER Respiratory Rate 19 06/19/2024 7:27 AM TACTICAL AIR CONTROL PARTY MANAGER Oxygen Saturation 96% 06/19/2024 7:27 AM TACTICAL AIR CONTROL PARTY MANAGER Inhaled Oxygen Concentration - - Weight [...] HEPATITIS C ANTIBODY Routine 06/08/2024 7:19 AM TACTICAL AIR CONTROL PARTY MANAGER Need for hepatitis C screening test PSA SCREEN Routine 06/08/2024 7:19 AM TACTICAL AIR CONTROL PARTY MANAGER Screening for prostate cancer COLONOSCOPY 11/19/2023 [...] LAB URINE ORDERABLES Final R esult [facility] [address] [address] * (ABNORMAL) Hemoglobin A1c (10/28/2024 7:10 AM CDT) Pathologist [facility] Hgb A1C 7.5(H) <5.7 % of total Hgb [facility] Jo[facility]Aisha Bowers Comment: For someone without known diabetes, [...] MD LAB BLOOD ORDERABLES Final R esult [facility] [address] [place] [address] * (ABNORMAL) Lipid panel (10/28/2024 7:10 AM CDT) [facility] Cholesterol 190 <200 mg/dL [facility] HDL 54 > OR = 40 mg/dL [facility] Triglycerides 70 <150 mg/dL [facility] LDL 120(H) mg/dL (calc) [facility] leisa Robinson Comment: Reference range: <100 Desirable range <100 mg/dL for primary prevention; <70 mg/dL for patients with CHD or diabetic patients with > or = 2 CHD risk factors. LDL-C is now calculated using the Cary calculation, which is a validated novel method providing better accuracy than the Friedewald equation in the estimation of LDL-C. Darrion EPSTEIN et al. LOS. 2013;310(19): 1575-6943 (http://education.Fieldoo.Soulstice Endeavors/faq/WDQ769) Chol/HDL ratio 3.5 <5.0 (calc) [facility] [facility] leisa Robinson Non-HDL, (LDL+VLDL) 136(H) <130 mg/dL (calc) [facility] Comment: For patients with diabetes plus 1 major ASCVD risk factor, treating to a non-HDL-C goal of <100 mg/dL (LDL-C of <70 mg/dL) is considered a therapeutic option. 10/28/2024 7:10 AM CDT 10/28/2024 7:14 AM CDT Narrative [facility] - 10/29/2024 3:46 AM CDT FASTING:YES FASTING: YES us Min Self MD LAB BLOOD ORDERABLES Final R esult [facility] [address] [place] [address] * (ABNORMAL) Comprehensive metabolic panel (10/28/2024 7:10 AM CDT) Glucose 124(H) 65 - 99 mg/dL [facility] Bowers Comment: Fasting reference interval For someone without known diabetes, a glucose value between 100 and 125 mg/dL is consistent with prediabetes and should be confirmed with a follow-up test. BUN 13 7 - 25 mg/dL [facility] leisa Bowers Creatinine 0.74 0.70 - 1.30 mg/dL [facility] leisa Bowers eGFR 105 > OR = 60 mL/min/1.7 3m2 [facility] leisa Bowers BUN/creat ratio SEE NOTE: 6 - 22 (calc) [facility] Bowers Comment: Not Reported: BUN and Creatinine are within reference range. Sodium 133(L) 135 - 146 mmol/L [facility] leisa Bowers Potassium, pl 4.5 3.5 - 5.3 mmol/L [facility] leisa Bowers Chloride 99 98 - 110 mmol/L [facility] leisa Bowers CO2 29 20 - 32 mmol/L [facility] leisa Bowers Calcium 9.5 8.6 - 10.3 mg/dL [facility] leisa Bowers Protein, sr 6.9 6.1 - 8.1 g/dL [facility] leisa Bowers Albumin 4.2 3.6 - 5.1 g/dL [facility] leisa Bowers GLOBULIN 2.7 1.9 - 3.7 g/dL (calc) [facility] Bowers Alb/glob ratio 1.6 1.0 - 2.5 [...] ORDERABLES Final R esult [facility] [address] [place] [address] * CT pelvis without contrast (10/15/2024 7:02 [...] sult * PSA screen (06/08/2024 7:19 AM TACTICAL AIR CONTROL PARTY MANAGER) PSA 0.23 < OR = 4.00 ng/mL [facility] Comment: The total PSA value from this assay system is standardized against the WHO standard. The test result will be approximately 20% lower when compared to the equimolar-standardized total PSA (Jack Shallowater). Comparison of serial PSA results should be interpreted with this fact in mind. This test was performed using the Siemens chemiluminescent method. Values obtained from different assay methods cannot be used interchangeably. PSA levels, regardless of value, should not be interpreted as absolute evidence of the presence or absence of disease. Blood 06/08/2024 7:19 AM TACTICAL AIR CONTROL PARTY MANAGER 06/08/2024 7:22 AM TACTICAL AIR CONTROL PARTY MANAGER Narrative [facility] - 06/10/2024 1:13 AM TACTICAL AIR CONTROL PARTY MANAGER FASTING:YES FASTING: YES Min Self MD LAB BLOOD ORDERABLES Final R esult [facility] [address] [place] [address] * Hepatitis C antibody Blood (06/08/2024 7:19 AM TACTICAL AIR CONTROL PARTY MANAGER) Hep C Ab NON-REACTI VE NON-REACT JAS [facility] Comment: HCV antibody was non-reactive. There is no laboratory evidence of HCV infection. In most cases, no further action is required. However, if recent HCV exposure is suspected, a test for HCV RNA (test code 82339) is suggested. For additional information please refer to http://education.Avista/faq/IJV35n0 (This link is being provided for informational/ educational purposes only.) Blood 06/08/2024 7:19 AM TACTICAL [employer] CONTROL PARTY MANAGER 06/08/2024 7:22 AM TACTICAL AIR CONTROL PARTY MANAGER Narrative [facility] - 06/10/2024 1:13 AM TACTICAL AIR CONTROL PARTY MANAGER FASTING:YES FASTING: YES us Min Self MD LAB MICROBIOLOGY - GENERAL O RDERABLES Final Result [facility] [address] [place] [address] * Colonoscopy (11/19/2023 1:32 PM CDT) Anatomical Region Laterality Modality Other Narrative Procedure Note Carlo Walsh MD - 11/19/2023 1:32 PM CDT [facility] Patient Name: Tate Gotti Procedure Date: 11/19/2023 1:32 PM Date of : 1965 Admit Type: Outpatient Age: 58 Gender: Male Attending MD: Carlo Walsh M.D. Room: [facility] ENDOSCOPY ROOM 2 Note Status: Finalized [...] under direct vision. The Pediatric Colonoscope PCF-H190L [id number] was introducedthrough the anus and advanced to [...] 1:32 PM Procedure Code(s): --- Professional --- 39624, Colonoscopy, flexible; with removal of tumor(s), polyp(s), or other lesion(s) by snare technique --- Technical --- 19213, Colonoscopy, flexible; with removal of tumor(s), polyp(s), or other lesion(s) by snare technique Diagnosis Code(s): --- Professional --- K64.1, Second degree hemorrhoids K92.1, Melena (includes Hematochezia) --- Technical --- K64.1, Second degree hemorrhoids K92.1, Melena (includes Hematochezia) CPT copyright 2020 [employer]. All rights reserved. The codes documented in this report are preliminary and upon consumer insights specialist reviewmay be revised to meet current compliance requirements. Recognized by the [employer] for promoting quality in endoscopy Carlo Walsh MD ENDOSCOPY PROCED URES Final Result * Diabetic Eye Exam (11/12/2020) Historical Provider HEALTH MAINTENANCE Final Result * DIABETES FOOT EXAM (04/11/2016) Diabetic Foot Exam Unknown Historical Provider HEALTH MAINTENANCE Final Result from Last 3 Months or Most Recently Relevant to Health Maintenance Insurance [facility] HMO/PPO Address: [facility] [address] [place] [address] [facility] CHOICE PLUS [facility] HMO/PPO Address: [facility] [address] [place] [address] Advance Directives For more information, please contact: [phone] * Full Code (Latest Code Status on [...] 6:01 PM 01/10/2023 8:55 PM Care Teams Coin Teller Relationship Specialty Start Date End Date Min Self MD PCP - General Internal Medicine 06/16/22 Min Self MD 06/16/22 Chris Craft, PT Physical Therapist Physical Therapy 12/06/17 Tessie Gomez, [facility] Physical Therapist Physical Therapy 12/11/17 Galen Santo MD Consulting Physician Medical Oncology 03/13/22
--- OUTSIDE RECORDS SUMMARY | 2024-11-02 21:10 | XMS_ITS | Clinical Summary ---
Author Organization [facility] Address [address] [place] [id number] Care Team Providers Care Office Coordinator Name Role Phone Unavailable Primary Care Provider [...]
--- OUTSIDE RECORDS SUMMARY | 2024-11-02 21:10 | XMS_ITS | Clinical Summary ---
Author Organization [facility] Address [address] [place] [address] Care Team Providers Care Fishing Hand Name Role Phone Min Self MD Primary Care Provider [phone] Min Self MD Unavailable [phone] Chris Craft PT Unavailable Unavaila Tessie Carlson PTA Unavailable Unavailab Galen Grady MD Unavailable [phone] Allergies Active Allergy Reactions Criticality Noted Date [...] 05/2024 Assessment & Plan (06/19/2024 8:13 AM [facility] [facility]): B12, folate, TSH normal May 2024. History of stroke 02/17/2024 Assessment & Plan (05/27/2024 8:43 AM [facility] [employer]): Prior left frontal lobe CVA. Repeat MRI. Assessment & Plan (02/17/2024 5:48 PM CDT): Will avoid Triptans with history of hypertension and previous stroke. Occipital headache 02/17/2024 Assessment & Plan (06/19/2024 8:14 AM [facility] [employer]): Headaches well controlled with Nurtec ODT. Last required about a week ago. Recommended decreasing tobacco, alcohol, caffeine. Complete MRI as directed by Neurology and follow up with them for further management. Assessment & Plan (05/27/2024 8:45 AM [facility] [facility] [employer]): Patient presents today for evaluation of occipital [...] 09/17/2023 Assessment & Plan (09/17/2023 10:33 AM [facility] [employer]): Opiate induced constipation from his chronic hydrocodone usage. He has failed Metamucil Dulcolax Colace MiraLax. Both Movantik and Symproic sent to the pharmacy and he knows to take only 1, whichever is cheaper or covered by insurance. Will also check TSH and FT4 and call back for results. Rectal bleeding 09/17/2023 Assessment & Plan (09/17/2023 10:35 AM [facility] [employer]): Most likely irritated hemorrhoids from worsening constipation. Should improve with treatment of constipation. Will order colonoscopy to ensure no other underlying source of bleeding and because he has had polyps in the past. Alcohol use 08/19/2023 Assessment & Plan (08/19/2023 9:11 AM [facility]): Decrease use, cont mvi. Alcohol use disorder [...] stay suture removal. Continue current usage of Buckner but aware we will eventually need to [...] 04/16/2022 Assessment & Plan (08/08/2022 12:30 PM [facility] [employer]): Continue Buckner 10/325 2 tablets every 12 hours as needed. Asked him to try to cut down on this if able. He needs to follow-up with his orthopedist for surgical intervention as they direct. Assessment & Plan (07/05/2022 11:59 AM [facility]): Continue following with orthopedics S/p injection Will [...] 09/2017. Assessment & Plan (06/19/2024 8:13 AM [facility] [employer]): Stop smoking immediately and use albuterol as needed. Assessment & Plan (08/19/2023 9:16 AM [facility] [employer] [employer]): Stop smoking immediately. Albuterol as needed. Assessment & Plan (05/12/2023 11:43 PM CDT): Stop smoking immediately. Albuterol p.r.n. Assessment & Plan (11/18/2022 12:22 PM CDT): Patient with history of COPD and recent pneumonia and requires nebulizer for albuterol treatments. Prescription provided. Assessment & Plan (08/08/2022 12:30 PM [facility]): Patient congratulated on smoking cessation efforts and [...] 05/29/2018 Assessment & Plan (08/19/2018 8:33 AM [facility] [facility] [employer]): Recommended use of Flonase once daily, nasal [...] for imaging and/or management. He already takes Buckner p.r.n. for pain continue this certainly as needed will follow-up with recommendations per orthopedist Healthcare maintenance 05/17/2017 Assessment & Plan (06/19/2024 8:13 AM [facility] [employer]): Flu shot today.. Tetanus booster every 10 [...] facility. Assessment & Plan (07/14/2019 9:03 AM [facility] [employer]): Flu shot each April which was declined today and he is aware the risks this poses to his health. Tetanus booster every 10 years. Shingrix recommended. Colonoscopy due March 2021. PSA yearly. Will see him back in 6 months with lab sooner if needed. Assessment & Plan (05/29/2018 7:33 PM [facility] [employer]): Flu shot each April. Tetanus booster every [...] referral. Assessment & Plan (05/29/2018 7:32 PM [facility] [employer]): No symptomatic improvement on tamsulosin or finasteride. [...] II Assessment & Plan (06/19/2024 8:12 AM [facility] [employer]): Continue current medications, efforts at diet exercise, and check labs before next visit in 4 months. Assessment & Plan (02/17/2024 5:48 PM CDT): Continue current medications, efforts at diet exercise, and check labs before next visit in 4 months. Assessment & Plan (08/19/2023 9:17 AM [facility] [employer]): Check fasting labs this week and call [...] visit. Assessment & Plan (08/08/2022 12:29 PM [facility] [employer]): Have labs done tomorrow and call back [...] intact. Assessment & Plan (07/14/2019 9:01 AM [facility] [employer] [facility] [employer]): A1c, LDL, and blood pressure currently well [...] health. Assessment & Plan (08/12/2018 11:40 AM [facility] [employer]): Last A1c was 7.2% with room to improve as goal is to get under 7%. Glycosuria was also noted during ER visit D/T poor control. Encourage Pt to continue with dietary modifications and increase exercise and discussed further indications to start on metformin upon next visit Dr. Self Assessment & Plan (05/29/2018 7:27 PM [facility] [employer]): A1c above goal. Must reduce carbs further. [...] chantix Assessment & Plan (06/19/2024 8:12 AM [facility] [employer]): Nicotine replacement therapy and smoking cessation counseling discussed at length. The long-term risks posed to his health with continued usage were discussed at length. Assessment & Plan (05/12/2023 11:45 PM CDT): Nicotine replacement therapy and smoking cessation counseling discussed at length. The long-term risks posed to his health with continued usage were discussed at length. Assessment & Plan (08/08/2022 12:29 PM [facility] [employer]): Patient is encouraged to continue smoking cessation [...] length. Assessment & Plan (07/14/2019 9:01 AM [facility] [employer]): Nicotine replacement therapy and smoking cessation counseling [...] length. Assessment & Plan (08/19/2018 8:32 AM [facility] [employer]): Improving. Down to 4-6 cigarettes a day with use of Nicorette lozenges. Continue with tobacco cessation methods considering success Assessment & Plan (08/12/2018 11:41 AM [facility] [employer] [employer]): Encourage Pt to work toward cessation. He does still have neck red lozenges that he does have to use the future. Recheck does with any additional assistance we can provide work toward cessation Assessment & Plan (05/29/2018 7:31 PM [facility] [employer]): Nicotine replacement therapy and smoking cessation counseling discussed at length. The long-term risks posed to his health with continued usage were discussed at length. Assessment & Plan (11/20/2017 10:21 AM CDT): Nicotine replacement therapy and smoking cessation counseling discussed at length. The long-term risks posed to his health with continued usage were discussed at length. Assessment & Plan (08/20/2017 8:38 AM [facility] [employer]): Smoking cessation was again encouraged considering acute [...] HYPERTENSION Assessment & Plan (06/19/2024 8:12 AM [facility] [employer]): Blood pressure acceptable and microalbumin creatinine ratio normal therefore we will continue holding ARB for now. Assessment & Plan (02/17/2024 5:48 PM CDT): Decrease irbesartan to 75 mg daily. Check blood pressures at home occasionally call back if they elevate. Assessment & Plan (08/19/2023 9:16 AM [facility] [employer] [employer]): Pressure well controlled on irbesartan Assessment & Plan (05/12/2023 11:43 PM CDT): Blood pressure well controlled on irbesartan Assessment & Plan (08/08/2022 12:30 PM [facility] [employer]): Blood pressure well controlled on his irbesartan. [...] recommended. Assessment & Plan (07/14/2019 9:02 AM [facility] [employer] [employer]): Well controlled on the current regimen. Avoidance [...] recommended. Assessment & Plan (08/19/2018 8:34 AM [facility] [employer]): Blood pressure improved in office today compared to last office visit continue with current antihypertensives, dash diet, working toward smoking cessation and follow-up in office in 6 weeks for labs and visit scheduled Assessment & Plan (08/12/2018 11:42 AM [facility] [employer]): Blood pressure stable in office today. Continue current antihypertensives, monitoring blood pressure readings at home to notify us with any sx of elevated BP or readings at or above 140/90. Continue daily aspirin, heart healthy diet increase exercise F/U in office as scheduled with labs prior to visit Assessment & Plan (05/29/2018 7:31 PM [facility] [employer]): Well controlled on the current regimen. Avoidance of salt, proper body weight, and routine exercise recommended. Assessment & Plan (11/20/2017 10:21 AM CDT): Change lisinopril to losartan due to chronic coughing. Assessment & Plan (08/20/2017 8:36 AM [facility] [employer] [employer]): Stable. Continue to avoid decongestants well acutely [...] 180's Assessment & Plan (06/19/2024 8:12 AM [facility] [employer]): Restart rosuvastatin 40 mg daily and take it at bedtime. Check lipids LFTs before next visit. Assessment & Plan (08/19/2023 9:17 AM [facility] [employer] [employer]): Check fasting labs this week and call back for results. Continue his rosuvastatin diet exercise. Assessment & Plan (05/12/2023 11:45 PM CDT): Well controlled on current therapy and will check a lipid panel and LFTs in 6 months. Assessment & Plan (11/18/2022 12:21 PM CDT): Continues rosuvastatin check lipids and LFTs before next visit Assessment & Plan (08/08/2022 12:29 PM [facility] [employer]): Check lipids and LFTs tomorrow and call [...] visit. Assessment & Plan (07/14/2019 9:02 AM [facility] [employer] [employer]): Well controlled on current therapy and will [...] visit. Assessment & Plan (05/29/2018 7:31 PM [facility] [employer]): Should be taking Crestor on a regular [...] NOS-UNSPEC Assessment & Plan (06/19/2024 8:13 AM [facility]): Continue Buckner as needed and follow up with Orthopedics if worsens. Assessment & Plan (08/19/2023 9:17 AM [facility] [employer]): Continue Buckner as needed and follow up with Orthopedics if worsens. Assessment & Plan (05/12/2023 11:45 PM CDT): Continue Buckner as needed and follow-up with orthopedics if worsens. Assessment & Plan (01/26/2022 11:48 AM CDT): Increase Buckner to 10/325 1 tablet every 12 hours as needed. Patient advised if pain worsens after this, to seek orthopedic evaluation. Assessment & Plan (11/04/2020 8:39 AM CDT): Continue Buckner p.r.n. Assessment & Plan (07/14/2019 9:02 AM [facility] [employer]): Buckner p.r.n.. Follow-up with orthopedics if worsens. Assessment & Plan (04/23/2019 9:13 AM CDT): Continue hydrocodone p.r.n. Assessment & Plan (12/31/2018 3:16 PM CDT): Continue efforts at weaning down off of his chronic narcotic therapy. Assessment & Plan (08/12/2018 11:52 AM [facility] [facility]): Refilled norco to take prn after having checked the [place] PMDP online. No desire to see orthopedist at this time d/t insurance issues with coverage for TKR Assessment & Plan (05/29/2018 7:31 PM [facility] [employer]): Buckner p.r.n. follow-up Orthopedics as they direct. Assessment & Plan (11/20/2017 10:22 AM CDT): Buckner p.r.n. Assessment & Plan (08/20/2017 8:40 AM [facility] [employer]): Still awaiting to become a candidate to have his knees replaced as he states t hat to be bone on bone , I recommended him to follow up with ortho as indicated. Additionally, I refilled his Buckner to use on a p.r.n. basis I did check into the [place] state monitoring program in order to verify [...] Assessment & Plan (05/17/2017 5:47 PM CDT): Buckner p.r.n. and follow up with Orthopedics as they a direct. Obstructive sleep apnea syndrome 08/04/2013 Overview (10/25/2016): LAINEY (obstructive sleep apnea) Assessment & Plan (06/19/2024 8:12 AM [facility]): Patient is compliant with the CPAP machine and gets symptomatic relief. Assessment & Plan (08/19/2023 9:17 AM [facility]): Patient is compliant with the CPAP machine [...] relief. Assessment & Plan (07/14/2019 9:02 AM [facility]): Patient is compliant with the CPAP machine and gets symptomatic relief. Assessment & Plan (05/29/2018 7:27 PM [facility]): Patient is compliant with the CPAP machine and gets symptomatic relief. Assessment & Plan (11/20/2017 10:21 AM CDT): Continue CPAP therapy and follow up Dr. Flores as he directs. Assessment & Plan (08/20/2017 8:40 AM [facility] [facility]): I advised patient he can take a [...] antibiotics Assessment & Plan (06/28/2017 10:53 AM [facility] [facility]): Patient would like to proceed with a [...] 08/19/2018 Assessment & Plan (08/19/2018 8:34 AM [facility]): Recommended Z-Kavon to take as prescribed, nasal rinses, Mucinex with increase fluids to assist with cough production and current COPD management. RTC with worsening or little improvement sx over the course of the next 5-7 days Acute URI 08/12/2018 08/19/2018 Assessment & Plan (08/12/2018 11:50 AM [facility] [facility] [employer]): Rapid influenza negative. Likely be a viral [...] to take as prescribed along with probiotics [id number]. Pt was advised to use OTC antihistamines, increase fluids and humidification, and mucinex OTC for alleviate of congestion and cough. Pulmonary emphysema 11/20/2017 11/05/19 21 Overview (11/20/2017): Min obstruction on pft's 09/2017. Assessment & Plan (01/05/2020 4:01 PM CDT): Continue Anoro and use albuterol p.r.n. stop smoking immediately. Assessment & Plan (07/14/2019 9:02 AM [facility] [facility] [employer]): Well controlled on Anoro. Use albuterol p.r.n.. Stop smoking immediately. Assessment & Plan (04/23/2019 9:13 AM CDT): Stop smoking immediately. Continue Anoro. Use albuterol p.r.n. Assessment & Plan (01/25/2019 6:32 PM CDT): Continue Anoro daily and albuterol p.r.n. Assessment & Plan (10/01/2018 10:42 PM CDT): Well controlled on his Anoro. Assessment & Plan (08/19/2018 8:33 AM [facility]): Mild exacerbation noted from lower resp. Infection. Cont. Anoro inhaler and albuterol use Q4-6hrs for indications provided. RTC with any persistent symptoms Assessment & Plan (08/12/2018 11:42 AM [facility] [employer]): Continue with current dosing of an RO D/T C/o chronic cough and dyspnea as previously recommended even with acute chest congestion. Liberating use of albuterol p.r.n. During the acute infection was encouraged Assessment & Plan (05/29/2018 7:32 PM [facility] [employer]): Start Anoro for chronic coughing and shortness [...] 11/20/2017 Assessment & Plan (08/20/2017 8:38 AM [facility] [facility]): Z-Kavon did not seem to appropriately treat his sinusitis and postnasal drip which is likely contributing somewhat to his persistent cough along with his COPD. I recommended patient to take Ceftin 250 twice daily for 10 days along with use of [id number] Flonase, increase fluids and certainly the use of probiotics or Faroese yogurt daily while on antibiotics. Follow-up in office prior to the 1 month follow-up if indicated Acute bronchitis 08/06/2017 11/20/2017 Assessment & Plan (08/20/2017 8:37 AM [facility]): Prescribed corticosteroids in tapering fashion for with [...] 18 Assessment & Plan (08/20/2017 8:36 AM [facility]): Recommended patient to continue to increase heart [...] Department Care Team Description 10/28/2024 Orders Only [facility] [address] [place] [phone] Min Self MD 10/22/[address] [facility] Radiology [address] [place] [address] Hyacinth Culver RN 10/20/2024 Telephone [facility] [address] [place] [phone] Min Self MD Medical Question/Miscellane ous 10/15/2024 6:33 AM CDT - 10/15/2024 11:59 PM CDT Hospital Encounter [facility] [address] [place] [address] Alvaro Doty MD Left hip pain Discharge Disposition: Discharge to home or self care 10/13/2024 Orders Only [facility] Orthopaedic Surgery [address] [facility] Advanced Medicine 6th [place] [address] [place] [address] Alvaro Doty MD 10/12/2024 Telephone [facility] Radiology, Interventional Radiology [address] [facility] [address] [place] [address] Kamilla Guevara, RN Appointment 10/09/2024 8:40 AM CDT Office Visit [facility] Orthopaedic Surgery [address] [facility] Advanced Medicine [address]th [place] [address] [place] [address] Alvaro Doty MD Left hip pain (Primary Dx) 10/09/2024 8:15 AM CDT - 10/09/2024 11:59 PM CDT Hospital Encounter [facility] Rad[facility] [address] [place] [address] Alvaro Doty MD Left hip pain Discharge Disposition: Discharge to home or self care 10/09/2024 Telephone [facility] Orthopaedic Surgery [address] [place] [address] Advanced Medicine 6th [place] [address] [place] [address] Alvaro Doty MD 10/09/[address] [facility] Radiology [address] [place] [phone] Hyacinth Culver RN 10/07/2024 Orders Only [facility] Orthopaedic Surgery [address] [place] [address] Advanced Medicine 6th [place] [address] [place] [address] Alvaro Doty MD Left hip pain (Primary Dx) 09/08/2024 2:00 PM [facility] Office Visit [facility] Orthopedics and Sports Medicine [address] [place] [address] [address] [place] [phone] Alla Gomez PA Left hip pain (Primary Dx) 09/08/2024 7:47 AM [facility] - 09/08/2024 11:59 PM [facility] Hospital Encounter [facility] Medical [facility] Orthopedics and Sports Medicine [address] [facility] [address] [place] [phone] Discharge Disposition: Discharge to home or self care 08/06/2024 Telephone [facility] Orthopedics and Sports Medicine [address] [facility] [address] [place] [address] Kevin Calvert MD from Last [...] on file Legal Sex Male 12:31 AM [facility] [facility] Gender Identity Not on file Sexual Orientation Not on file Obstetrics History Last Filed Vital Signs Vital Sign Reading Time Taken Comments Blood Pressure 137/81 09/08/2024 2:01 PM [facility] Pulse 74 09/08/2024 2:01 PM [facility] Temperature 36.9 C (98.4 F) 06/19/2024 7:27 AM [facility] Respiratory Rate 19 06/19/2024 7:27 AM [facility] Oxygen Saturation 96% 06/19/2024 7:27 AM [facility] Inhaled Oxygen Concentration - - Weight 74.4 [...] HEPATITIS C ANTIBODY Routine 06/08/2024 7:19 AM [facility] Need for hepatitis C screening test PSA SCREEN Routine 06/08/2024 7:19 AM [facility] [employer] [facility] [employer] Screening for prostate cancer COLONOSCOPY 11/19/2023 1:32 [...] ORDERABLES Final R esult [facility] [address] [phone] * (ABNORMAL) Hemoglobin A1c (10/28/2024 7:10 AM CDT) Hgb A1C 7.5(H) <5.7 % of total Hgb [facility]ers Comment: For someone without known diabetes, [...] Self MD LAB BLOOD ORDERABLES Final R [facility] Performing Organization Address City/[facility] Co de Phone Number [email or web address] [place] [address] * (ABNORMAL) Lipid panel (10/28/2024 7:10 AM CDT) Cholesterol 190 <200 mg/dL [facility] leisa Bowers HDL 54 > OR = 40 mg/dL Candida Bike [facility]Aisha Bowers Triglycerides 70 <150 mg/dL [employer] leisa Bowers LDL 120(H) mg/dL (calc) Candida Bike [facility] leisa Bowers Comment: Reference range: <100 Desirable range <100 mg/dL for primary prevention; <70 mg/dL for patients with CHD or diabetic patients with > or = 2 CHD risk factors. LDL-C is now calculated using the Darrion-Baez calculation, which is a validated novel method providing better accuracy than the Friedewald equation in the estimation of LDL-C. Darrion SS et al. LOS. 2013;310(19): 3968-7302 (http://education.Calabrio/faq/GKC994) Chol/HDL ratio 3.5 <5.0 (calc) [facility] [employer] Non-HDL, (LDL+VLDL) 136(H) <130 mg/dL (calc) [facility] [employer] Comment: For patients with diabetes plus 1 major ASCVD risk factor, treating to a non-HDL-C goal of <100 mg/dL (LDL-C of <70 mg/dL) is considered a therapeutic option. 10/28/2024 7:10 AM CDT 10/28/2024 7:14 AM CDT Narrative [facility] - 10/29/2024 3:46 AM CDT FASTING:YES FASTING: YES us Min Self MD LAB BLOOD ORDERABLES Final R esult [facility] [address] [place] [address] * (ABNORMAL) Comprehensive metabolic panel (10/28/2024 7:10 AM CDT) Glucose 124(H) 65 - 99 mg/dL [facility] [employer]ers Comment: Fasting reference interval For someone without known diabetes, a glucose value between 100 and 125 mg/dL is consistent with prediabetes and should be confirmed with a follow-up test. BUN 13 7 - 25 mg/dL [facility] [employer] Creatinine 0.74 0.70 - 1.30 mg/dL [facility] [employer] eGFR 105 > OR = 60 mL/min/1.7 3m2 [facility] [employer] BUN/creat ratio SEE NOTE: 6 - 22 (calc) Candida Bike [facility]an Bowers Comment: Not Reported: BUN and Creatinine are within reference range. Sodium 133(L) 135 - 146 mmol/L [facility] [employer] Potassium, pl 4.5 3.5 - 5.3 mmol/L [facility] [employer] Chloride 99 98 - 110 mmol/L [facility] [employer] CO2 29 20 - 32 mmol/L [...] LAB BLOOD ORDERABLES Final R esult [facility] [address] [place] [address] * CT pelvis without contrast (10/15/2024 7:02 [...] sult * PSA screen (06/08/2024 7:19 AM [facility] [employer] [facility] [employer]) PSA 0.23 < OR = 4.00 ng/mL [...] absence of disease. Blood 06/08/2024 7:19 AM [facility] 06/08/2024 7:22 AM [facility] Narrative [facility] - 06/10/2024 1:13 AM [facility] [facility] FASTING:YES FASTING: YES us Min Self MD LAB BLOOD ORDERABLES Final R esult Performing Organization Address [facility] Co de Phone Number [facility] [address] [phone] * Hepatitis C antibody Blood (06/08/2024 7:19 AM [facility] [employer] [facility] [employer]) Hep C Ab NON-REACTI VE NON-REACT [facility] Comment: HCV antibody was non-reactive. There is no laboratory evidence of HCV infection. In most cases, no further action is required. However, if recent HCV exposure is suspected, a test for HCV RNA (test code 30881) is suggested. For additional information please refer to http://CrowdHall.[employer]/faq/ZIT72d9 (This link is being provided for informational/ educational purposes only.) Blood 06/08/2024 7:19 AM [employer] [employer] 06/08/2024 7:22 AM [employer] Narrative [facility] - 06/10/2024 1:13 AM [employer] FASTING:YES FASTING: YES us Min Self MD LAB MICROBIOLOGY - GENERAL O RDERABLES Final Result Performing Organization Address [facility] Co de Phone Number [email or web address] [place] [address] * Colonoscopy (11/19/2023 1:32 PM CDT) Anatomical Region Laterality Modality Other Narrative Procedure Note Carlo Walsh MD - 11/19/2023 1:32 PM CDT [facility] Patient Name: Tate Gotti Procedure Date: 11/19/2023 1:32 PM Date of : 1965 Admit Type: Outpatient Age: 58 Gender: Male Attending MD: Carlo Walsh M.D. Room: [facility] ENDOSCOPY ROOM 2 Note Status: Finalized [...] under direct vision. The Pediatric Colonoscope PCF-H190L [id number] was introducedthrough the anus and advanced to [...] 1:32 PM Procedure Code(s): --- Professional --- 90240, Colonoscopy, flexible; with removal of tumor(s), polyp(s), or other lesion(s) by snare technique --- Technical --- 41559, Colonoscopy, flexible; with removal of tumor(s), polyp(s), or other lesion(s) by snare technique Diagnosis Code(s): --- Professional --- K64.1, Second degree hemorrhoids K92.1, Melena (includes Hematochezia) --- Technical --- K64.1, Second degree hemorrhoids K92.1, Melena (includes Hematochezia) CPT copyright 2020 [employer]. All rights reserved. The codes documented in this report are preliminary and upon cabin outfitter reviewmay be revised to meet current compliance requirements. Recognized by the [employer] for promoting quality in endoscopy Carlo Walsh MD ENDOSCOPY PROCED URES Final Result * Diabetic Eye Exam (11/12/2020) Historical Provider HEALTH MAINTENANCE Final Result * DIABETES FOOT EXAM (04/11/2016) Diabetic Foot Exam Unknown Historical Provider HEALTH MAINTENANCE Final Result from Last 3 Months or Most Recently Relevant to Health Maintenance Insurance [facility] [employer] H[facility]/PPO Address: [facility] [address] [place] [address] [facility] [employer] H[facility]/PPO Address: [facility] [address] [place] [address] Advance Directives For more information, please contact: [phone] * Full Code (Latest Code Status on [...] 6:01 PM 01/10/2023 8:55 PM Care Teams Fishing Hand Relationship Specialty Start Date End Date Min Self MD PCP - General Internal Medicine 06/16/22 Min Self MD 06/16/22 Chris Craft, PT Physical Therapist Physical Therapy 12/06/17 Tessie Gomez, SHIFT MECHANIC Physical Therapist Physical Therapy 12/11/17 Galen Santo MD Consulting Physician Medical Oncology 03/13/22
[2024-11-02] MEDS: HYDROcodone/acetaminophen (*CRX) 5-325 MG TABLET 1 TAB PO (22:26)
[2024-11-02] MEDS: IBUPROFEN 400 MG TABLET 800 MG PO (22:27)
--- NOTE | 2024-11-02 23:25 | PC.NURSE ---
Pt refused arm sling.
== END 2024-11-02 23:26 | disposition home or self-care (01) ==
PROVIDERS: Emergency Provider Physician Assistant; PCP Internal Medicine
DX: M25.512 Pain in left shoulder (principal); F17.200 Nicotine dependence, unspecified, uncomplicated
CPT/HCPCS: 71046; 71250; 73010; 73200; 99284; A4565; A9270